=== PATIENT | female | born 1955 | race Caucasian/White ===

== ENCOUNTER 2016-11-15 18:29 | Inpatient (IN) | payer OTHER ==
[2016-11-15] MEDS ORDERED: ONDANSETRON 4 MG/2 ML VIAL ONE (18:47)
[2016-11-15] MEDS ORDERED: PANTOPRAZOLE SODIUM 40 MG in SODIUM CHLORIDE 100 ML IVPB ONE (19:11)
[2016-11-15] MEDS ORDERED: SODIUM CHLORIDE 1,000 ML IV STA (19:11)
--- NOTE | 2016-11-15 19:11 | PDOC ---
History of Present Illness - History of Present Illness Initial Comments: 11/15/16 19:33 The patient is a 61 year old female, with no significant past medical history, who presents to the emergency department via ems for [place] covered in brown and red coffee ground-like emesis. The patient does not recall falling to the floor, however, she does recall feeling dizzy upon leaving the train. The patient can not recall the events following feeling dizzy. The patient admits to diffuse abdominal pain. As per ems, a bystander saw the patient and called ems. The patient was hypotensive (70 /30) in the field. She denies chest pain, shortness of breath, headache and dizziness. She denies fever, chills, nausea, vomit, diarrhea and constipation. She denies dysuria, frequency, urgency and hematuria. Allergies: NKDA Past surgical history: Social history: a pack tobacco daily (40 years), admits to frequent alcohol consumption <Tosin Taylor - Last Filed: 11/15/16 19:33> <Layla Nicole - Last Filed: 11/15/16 21:10> - General Chief Complaint: Vomiting Blood Stated Complaint: VOMITTING BLOOD Past History <Tosin Taylor - Last Filed: 11/15/16 19:33> - Past Medical History Other medical history: PT DENIES MEDICAL HX - Psycho/Social/Smoking Cessation Hx Suicidal Ideation: No Smoking History: Never smoked Hx Alcohol Use: Yes (OCCASIONALLY) Drug/Substance Use Hx: No Substance Use Type: Alcohol <Layla Nicole - Last Filed: 11/15/16 21:10> - Past Medical History Allergies/Adverse Reactions: Allergies Allergy/AdvReac Type Severity Reaction Status Date / Time No Known Allergies Allergy Verified 11/15/16 18:44 Home Medications: Ambulatory Orders NK [No Known Home Medication] 11/15/16 Review of Systems - Review of Systems Able to Perform ROS?: Yes Comments:: 11/15/16 19:33 CONSTITUTIONAL: Absent: fever, chills, diaphoresis, generalized weakness, malaise, loss of appetite HEENT: Absent: rhinorrhea, nasal congestion, throat pain, throat swelling, difficulty swallowing, mouth swelling, ear pain, eye pain, visual Changes CARDIOVASCULAR: Absent: chest pain, syncope, palpitations, irregular heart rate, lightheadedness , peripheral edema RESPIRATORY: Absent: cough, shortness of breath, dyspnea with exertion, orthopnea, wheezing, stridor, hemoptysis GASTROINTESTINAL: (+) abdominal pain, nausea, vomiting, Absent: abdominal distension, diarrhea, constipation, melena, hematochezia GENITOURINARY: Absent: dysuria, frequency, urgency, hesitancy, hematuria, flank pain, genital pain MUSCULOSKELETAL: Absent: myalgia, arthralgia, joint swelling SKIN: Absent: rash, itching, pallor HEMATOLOGIC/IMMUNOLOGIC: Absent: easy bleeding, easy bruising, lymphadenopathy, frequent infections ENDOCRINE: Absent: unexplained weight gain, unexplained weight loss, heat intolerance, cold intolerance NEUROLOGIC: Absent: headache, focal weakness or paresthesias, dizziness, unsteady gait, seizure, mental status changes, bladder or bowel incontinence PSYCHIATRIC: Absent: anxiety, depression, suicidal or homicidal ideation, hallucinations. <Tosin Taylor - Last Filed: 11/15/16 19:33> *Physical Exam - Vital Signs Last Vital Signs Temp Pulse Resp BP Pulse Ox 97.6 F 84 18 134/64 94 L 11/15/16 18:35 11/15/16 18:35 11/15/16 18:35 11/15/16 18:35 11/15/16 18:35 - Physical Exam Comments: 11/15/16 19:34 GENERAL: Well developed, well nourished. Awake and alert. No acute distress. HEENT: Normocephalic, atraumatic. PERRLA, EOMI. No conjunctival pallor. Sclera are non- icteric. Moist mucous membranes. Oropharynx is clear. NECK: Supple. Full ROM. No JVD. Carotid pulses 2+ and symmetric, without bruits. No thyromegaly. No lymphadenopathy. CARDIOVASCULAR: Regular rate and rhythm. No murmurs, rubs, or gallops. Distal pulses are 2+ and symmetric. PULMONARY: No evidence of respiratory distress. Lungs clear to auscultation bilaterally. No wheezing, rales or rhonchi. ABDOMINAL: Soft. Non-tender. Non-distended. No rebound or guarding. No organomegaly. Normoactive bowel sounds. MUSCULOSKELETAL Normal range of motion at all joints. No bony deformities or tenderness. No CVA tenderness. EXTREMITIES: No cyanosis. No clubbing. No edema. No calf tenderness. SKIN: Warm and dry. Normal capillary refill. No rashes. No jaundice. NEUROLOGICAL: Alert, awake, appropriate. Cranial nerves 2-12 intact. Normoreflexic in the upper and lower extremities. Normal speech. Toes are down-going bilaterally. Gait is normal without ataxia. PSYCHIATRIC: Cooperative. Good eye contact. Appropriate mood and affect. <Tosin Taylor - Last Filed: 11/15/16 19:33> - Vital Signs Last Vital Signs Temp Pulse Resp BP Pulse Ox 97.6 F 84 18 134/64 94 L 11/15/16 18:35 11/15/16 18:35 11/15/16 18:35 11/15/16 18:35 11/15/16 18:35 <Layla Nicole - Last Filed: 11/15/16 21:10> ED Treatment Course - LABORATORY CBC & Chemistry Diagram: 11/15/16 19:20 11/15/16 19:20 <Layla Nicole - Last Filed: 11/15/16 21:10> Medical Decision Making - Medical Decision Making 11/15/16 20:59 -61 yo female [place] station w bloody vomit on her head ,hands and shirt PMH: denies PSH c section social history: tobacco -has been smoking 1/2 pack of tobacco x 40 years , drinks alcohol -pt states she does drink daily -bloody vomit washed off patient,she vomited coffee ground emesis -first hbg =10, no transfusion at this time hemoccult from rectal negative <Layla Nicole - Last Filed: 11/15/16 21:10> *DC/Admit/Observation/Transfer - Attestations Scribe Attestion: 11/15/16 19:34 Documentation prepared by Tosin Taylor, acting as medical records tech for Layla Nicole MD <Tosin Taylor - Last Filed: 11/15/16 19:33> - Discharge Dispostion Admit: Yes <Layla Nicole - Last Filed: 11/15/16 21:10> Diagnosis at time of Disposition: Gastrointestinal hemorrhage Qualifiers: GI bleed type/associated pathology: gastritis Gastritis type: alcoholic Qualified Code(s): K29.21 - Alcoholic gastritis with bleeding
[2016-11-15 19:40] LABS: BASOPHIL 0.6 % (0-2.0); EOSINOPHIL 0.6 % (0-4.5); MCH 28.7 pg (25.7-33.7); MCHC 32.2 g/dl (32.0-36.0); MEAN CELL VOLUME 89.1 fl (80-96); MEAN PLT VOLUME 9.4 fl (7.5-11.1); NEUTROPHILS 78.6 % (42.8-82.8); PLATELET COUNT 273 K/MM3 (134-434); RDW 16.1 % (11.6-15.6); WHITE BLOOD COUNT 12.6 K/mm3 (4.0-10.0)
[2016-11-15] MEDS ORDERED: PANTOPRAZOLE SODIUM 100 ML IVPB ONE (19:45)
[2016-11-15 19:55] LABS: INR 1.15 (0.82-1.09); PROTHROMBIN TIME (PATIENT) 12.7 SEC (9.98-11.88)
[2016-11-15 20:08] LABS: ALBUMIN 3.5 g/dl (3.4-5.0); BILIRUBIN,TOTAL 0.3 mg/dL (0.2-1.0); CALCIUM 8.1 mg/dL (8.5-10.1); TOT PROT 6.3 g/dl (6.4-8.2)
[2016-11-15 20:10] LABS: TROPONIN I 0.02 ng/ml (0.00-0.05)
[2016-11-15 20:46] LABS: STOOL FOR OCCULT BLOOD NEGATIVE (NEGATIVE)
[2016-11-15 20:48] LABS: HIV 1 & 2 AB NEGATIVE; HIV 1 AGp24 NEGATIVE
--- NOTE | 2016-11-16 00:25 | HP ---
Admitting History and Physical - Primary Care Physician PCP: Rosio Toribio - Admission History of Present Illness: 61 year old female, with no significant past medical history, who presents to the emergency department via ems for being found lying on the ground [place] the train station covered in brown and red coffee ground-like emesis. The patient does not recall falling to the floor, however, she does recall feeling dizzy upon leaving the train. The patient can not recall the events following feeling dizzy. The patient admits to diffuse abdominal pain. As per ems, a bystander saw the patient and called ems. The patient was hypotensive (70/30) in the field. history taken from ER records, pt does not remember - Smoking History Smoking history: Never smoked - Alcohol/Substance Use Hx Alcohol Use: Yes (OCCASIONALLY) Home Medications - Allergies Allergies/Adverse Reactions: Allergies Allergy/AdvReac Type Severity Reaction Status Date / Time No Known Allergies Allergy Verified 11/15/16 18:44 - Home Medications Home Medications: Ambulatory Orders NK [No Known Home Medication] 11/15/16 Physical Examination Vital Signs: Vital Signs Temperature 98 F 11/15/16 23:47 Pulse Rate 100 H 11/15/16 23:47 Respiratory Rate 18 11/15/16 23:47 Blood Pressure 140/74 11/15/16 23:47 O2 Sat by Pulse Oximetry (%) 100 11/15/16 23:47 Constitutional: Yes: No Distress HENT: Yes: Atraumatic Neck: Yes: Supple Cardiovascular: Yes: Regular Rate and Rhythm Respiratory: Yes: CTA Bilaterally Gastrointestinal: Yes: Normal Bowel Sounds Extremities: Yes: WNL Neurological: Yes: Alert, Oriented Problem List - Problems (1) GI bleed Assessment/Plan: npo, ivf iv protonix, gi consult Code(s): K92.2 - GASTROINTESTINAL HEMORRHAGE, UNSPECIFIED Qualifiers: GI bleed type/associated pathology: gastritis Gastritis type: alcoholic Qualified Code(s): K29.21 - Alcoholic gastritis with bleeding (2) Syncope Assessment/Plan: will monitor heart get cardiac consult Code(s): R55 - SYNCOPE AND COLLAPSE Assessment/Plan Laboratory Tests 11/15/16 11/15/16 11/15/16 19:20 19:20 19:20 WBC 12.6 H RBC 3.61 Hgb 10.4 L Hct 32.2 L MCV 89.1 MCHC 32.2 RDW 16.1 H Plt Count 273 MPV 9.4 Neutrophils % 78.6 Lymphocytes % 15.9 Monocytes % 4.3 Eosinophils % 0.6 Basophils % 0.6 Retic Count 1.90 H INR 1.15 H Sodium Potassium Chloride Carbon Dioxide Anion Gap BUN Creatinine Creat Clearance w eGFR Random Glucose Calcium Total Bilirubin AST ALT Alkaline Phosphatase Creatine Kinase 199 H CK-MB (CK-2) 2.528 Troponin I 0.02 Total Protein Albumin Stool Occult Blood HIV 1&2 Antibody Screen HIV P24 Antigen Blood Type Antibody Screen 11/15/16 11/15/16 11/15/16 19:20 19:20 19:48 WBC RBC Hgb Hct MCV MCHC RDW Plt Count MPV Neutrophils % Lymphocytes % Monocytes % Eosinophils % Basophils % Retic Count INR Sodium 144 Potassium 4.0 Chloride 110 H Carbon Dioxide 27 Anion Gap 7 L BUN 31 H Creatinine 1.0 Creat Clearance w eGFR 56.18 Random Glucose 146 H Calcium 8.1 L Total Bilirubin 0.3 AST 17 ALT 22 Alkaline Phosphatase 64 Creatine Kinase CK-MB (CK-2) Troponin I Total Protein 6.3 L Albumin 3.5 Stool Occult Blood Negative HIV 1&2 Antibody Screen HIV P24 Antigen Blood Type O POSITIVE Antibody Screen Negative 11/15/16 19:48 WBC RBC Hgb Hct MCV MCHC RDW Plt Count MPV Neutrophils % Lymphocytes % Monocytes % Eosinophils % Basophils % Retic Count INR Sodium Potassium Chloride Carbon Dioxide Anion Gap BUN Creatinine Creat Clearance w eGFR Random Glucose Calcium Total Bilirubin AST ALT Alkaline Phosphatase Creatine Kinase CK-MB (CK-2) Troponin I Total Protein Albumin Stool Occult Blood HIV 1&2 Antibody Screen Negative HIV P24 Antigen Negative Blood Type Antibody Screen 1.SYNCOPE WILL FU CARDIAC ENZYME CARDIAC CONSULT ECHO IN AM TELE MONITORING 2.UGI BLEED FU CBC POSSIBLE EGD TOMORROW GI CONSULT
[2016-11-16] MEDS ORDERED: HYDROmorphone HCL CARPU-JECT 1 MG/1 ML DISP.SYRIN IVPB PRN (00:29)
[2016-11-16 02:09] VITALS: BMI 39.9
[2016-11-16 08:39] LABS: BASOPHIL 0.4 % (0-2.0); EOSINOPHIL 0.5 % (0-4.5); MCH 28.6 pg (25.7-33.7); MCHC 32.4 g/dl (32.0-36.0); MEAN CELL VOLUME 88.3 fl (80-96); MEAN PLT VOLUME 8.9 fl (7.5-11.1); NEUTROPHILS 73.4 % (42.8-82.8); PLATELET COUNT 246 K/MM3 (134-434); RDW 15.7 % (11.6-15.6)
--- NOTE | 2016-11-16 08:53 | CON.GI ---
Consult Consult Specialty:: GASTROENTEROLOGY Reason for Consultation:: "COFFEE GROUND EMESIS" - History of Present Illness Chief Complaint: syncope/coffee ground emesis History of Present Illness: 61 year old female with history of GERD and recent increase in symptoms and increase in some upper esophageal dysphagia. She was feeling nauseated yesterday and had a witness syncopal episode and coffee ground emesis. She does not remember he syncope ofr vomiting but stated to me that she was having reflux, nausea, mild regurgitation all morning. She smokes about a pack or a pack and a half of cigarettes aday. She was on a PPi in the past but not now, Has never had a colonoscopy. Has had some constipation recently. Her admission albs show an anemia and a mild drop in the Hgb since admission. Her stools are OB negative. 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, CVA, Dementia, Migraine, Multiple Sclerosis, Peripheral Neuropathy, Parkinson's, Seizure, Syncope, TIA, Vertigo, Other Cardio/Vascular: No: AFIB, Aneurysm, Aortic Insufficiency, Aortic Stenosis, CAD , CHF, Deep Vein Thrombosis, HTN, Hyperlipdemia, [place], Mitral Insufficiency, Mitral Stenosis, Murmur, Pulmonary Hypertension, Other Pulmonary: No: Asthma, Bronchitis, Cancer, COPD, O2 Dependent, Pneumonia, Previously Intubated, Pulmonary Embolus, Pulmonary Fibrosis, Sleep Apnea, Other Gastrointestinal: Yes: GERD, Other (dysphagia,coffee ground emesis/nausea) Hepatobiliary: No: Cirrhosis, Cholelithiasis, Cholecystitis, Choledocholithiasis , Hepatitis A, Hepatitis B, Hepatitis C, Other Renal/: No: Renal Failure, Renal Inusuff, BPH, Cancer, Hematuria, Hemodialysis , Neurogenic Bladder, Renal Calculi, UTI, Other Reproductive: No: Ectopic , Endometriosis, Fibroids, PID, Polycystic Ovary Syndrome, Postmenopausal, Other ...: No Musculoskeletal: No: Bursitis, Chronic low back pain, Hemiparesis, Hemiplegia, Osteoarthritis, Paraplegia, Other Rheumatology: No: Fibromyalgia, Gout, Lupus, Rheumatoid Arthritis, Sarcoidosis, Vasculitis, Other ENT: No: Allergic Rhinitis, Sinusitis, Other Endocrine: No: Azar's Disease, Zain's Disease, Diabetes Insipidus, Diabetes Mellitus, Hyperparathyroidism, Hyperthyroidism, Hypothyroidism, Osteopenia, SIADH, Other Dermatology: No: Basal Cell, Cellulitis, Eczema, Melanoma, Psoriasis, Squamous Cell, Other - Past Surgical History Past Surgical History: Yes: - Alcohol/Substance Use Hx Alcohol Use: Yes (OCCASIONALLY) - Smoking History Smoking history: Current every day smoker Have you smoked in the past 12 months: Yes Aproximately how many cigarettes per day: 20 Home Medications - Allergies Allergies/Adverse Reactions: Allergies Allergy/AdvReac Type Severity Reaction Status Date / Time No Known Allergies Allergy Verified 11/15/16 18:44 - Home Medications Home Medications: Ambulatory Orders NK [No Known Home Medication] 11/15/16 Review of Systems - Review of Systems Constitutional: reports: Malaise, Other (nausea) Eyes: reports: No Symptoms HENT: reports: No Symptoms Neck: reports: No Symptoms Cardiovascular: reports: No Symptoms Respiratory: reports: No Symptoms Gastrointestinal: reports: Constipation, Dysphagia, Nausea, Vomiting Blood, Other (coffee ground emesis) Musculoskeletal: reports: No Symptoms Integumentary: reports: No Symptoms Neurological: reports: Change in LOC, Syncope Hematology/Lymphatic: reports: No Symptoms Psychiatric: reports: No Symptoms Physical Exam-GI Vital Signs: Vital Signs Temperature 99.3 F 11/16/16 06:00 Pulse Rate 87 11/16/16 06:00 Respiratory Rate 20 11/16/16 06:00 Blood Pressure 119/68 11/16/16 06:00 O2 Sat by Pulse Oximetry (%) 96 11/16/16 02:00 Constitutional: Yes: No Distress, Calm Eyes: Yes: Conjunctiva Clear HENT: Yes: Normocephalic Neck: Yes: Supple Cardiovascular: Yes: Regular Rate and Rhythm Respiratory: Yes: Regular Gastrointestinal Inspection: Yes: WNL ...Auscultate: Yes: Normoactive Bowel Sounds ...Palpate: Yes: Soft Extremities: Yes: WNL Neurological: Yes: WNL Psychiatric: Yes: WNL Labs: CBC, BMP 11/16/16 06:50 INR, PTT INR 1.15 (0.82-1.09) H 11/15/16 19:20 Laboratory Tests 11/15/16 11/15/16 11/15/16 19:20 19:20 19:20 WBC 12.6 H RBC 3.61 Hgb 10.4 L Hct 32.2 L MCV 89.1 MCHC 32.2 RDW 16.1 H Plt Count 273 MPV 9.4 Neutrophils % 78.6 Lymphocytes % 15.9 Monocytes % 4.3 Eosinophils % 0.6 Basophils % 0.6 Retic Count 1.90 H Sodium 144 Potassium 4.0 Chloride 110 H Carbon Dioxide 27 Anion Gap 7 L BUN 31 H Creatinine 1.0 Random Glucose 146 H Total Bilirubin AST ALT Alkaline Phosphatase Creatine Kinase 199 H Total Protein 6.3 L Stool Occult Blood HIV 1&2 Antibody Screen HIV P24 Antigen 11/15/16 11/15/16 11/16/16 19:48 19:48 06:50 WBC 13.0 H RBC 3.31 L Hgb 9.4 L Hct 29.2 L MCV 88.3 MCHC 32.4 RDW 15.7 H Plt Count 246 MPV 8.9 Neutrophils % 73.4 Lymphocytes % 19.7 D Monocytes % 6.0 Eosinophils % 0.5 Basophils % 0.4 Retic Count Sodium Potassium Chloride Carbon Dioxide Anion Gap BUN Creatinine Random Glucose Total Bilirubin AST ALT Alkaline Phosphatase Creatine Kinase Total Protein Stool Occult Blood Negative HIV 1&2 Antibody Screen Negative HIV P24 Antigen Negative 11/16/16 06:50 WBC RBC Hgb Hct MCV MCHC RDW Plt Count MPV Neutrophils % Lymphocytes % Monocytes % Eosinophils % Basophils % Retic Count Sodium 145 Potassium 3.9 Chloride 113 H Carbon Dioxide 23 Anion Gap 9 BUN 24 H D Creatinine 0.8 Random Glucose 88 D Total Bilirubin 0.5 D AST 17 ALT 18 Alkaline Phosphatase 62 Creatine Kinase Total Protein Stool Occult Blood HIV 1&2 Antibody Screen HIV P24 Antigen Problem List - Problems (1) GI bleed Assessment/Plan: medical clearance, iv protonix, clear liquids for now, repeat stool ob, for egd late tomorrow risks and benefits explained to the patient and she agrees smoking cessation colonoscopy as outpatient Code(s): K92.2 - GASTROINTESTINAL HEMORRHAGE, UNSPECIFIED Qualifiers: GI bleed type/associated pathology: gastritis Gastritis type: alcoholic Qualified Code(s): K29.21 - Alcoholic gastritis with bleeding (2) GERD (gastroesophageal reflux disease) Code(s): K21.9 - GASTRO-ESOPHAGEAL REFLUX DISEASE WITHOUT ESOPHAGITIS (3) Syncope Code(s): R55 - SYNCOPE AND COLLAPSE
[2016-11-16] MEDS ORDERED: PANTOPRAZOLE SODIUM 40 MG in SODIUM CHLORIDE 100 ML IVPB SCH (10:00)
--- NOTE | 2016-11-16 12:04 | EKG ---
Test Reason : Blood Pressure : / mmHG Vent. Rate : 087 BPM Atrial Rate : 087 BPM P-R Int : 180 ms QRS Dur : 074 ms QT Int : 420 ms P-R-T Axes : 073 051 031 degrees QTc Int : 505 ms NORMAL SINUS RHYTHM PROLONGED QT ABNORMAL ECG NO PREVIOUS ECGS AVAILABLE Confirmed by LILLIAN BUSH MD ([id number]) on 11/16/2016 12:03:49 PM Referred By: Confirmed By:LILLIAN BUSH MD
[2016-11-16] MEDS: PANTOPRAZOLE SODIUM 40 MG/100 ML PRE-DOCKED IVPB SCH (12:13)
[2016-11-16 13:04] LABS: ALBUMIN 3.6 g/dl (3.4-5.0); ALK PHOS 62 U/L (45-117); ANION GAP 9 (8-16); BILIRUBIN,TOTAL 0.5 mg/dL (0.2-1.0); CALCIUM 8.4 mg/dL (8.5-10.1); CO2 23 mmol/L (21-32); CREATININE 0.8 mg/dL (0.55-1.02); GLUCOSE,RANDOM 88 mg/dL (74-106); SGOT/AST 17 U/L (15-37); SGPT/ALT 18 U/L (12-78); TOT PROT 6.5 g/dl (6.4-8.2)
[2016-11-16 21:58] LABS: TROPONIN I < 0.02 ng/ml (0.00-0.05)
[2016-11-17] MEDS: PANTOPRAZOLE SODIUM 40 MG/100 ML PRE-DOCKED IVPB SCH (09:35)
--- NOTE | 2016-11-17 09:41 | CON.CARD ---
Consult Consult Specialty:: Cardiology - History of Present Illness History of Present Illness: The patient is a 61 year old female, with no significant past medical history, who presents to the emergency department via ems for [place] covered in brown and red coffee ground-like emesis. The patient does not recall falling to the floor, however, she does recall feeling dizzy upon leaving the train. The patient can not recall the events following feeling dizzy. The patient admits to diffuse abdominal pain. As per ems, a bystander saw the patient and called ems. The patient was hypotensive (70 /30) in the field. She denies chest pain, shortness of breath, headache and dizziness. She denies fever, chills, nausea, vomit, diarrhea and constipation. She denies dysuria, frequency, urgency and hematuria. 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, CVA, Dementia, Migraine, Multiple Sclerosis, Peripheral Neuropathy, Parkinson's, Seizure, Syncope, TIA, Vertigo, Other Cardio/Vascular: No: AFIB, Aneurysm, Aortic Insufficiency, Aortic Stenosis, CAD , CHF, Deep Vein Thrombosis, HTN, Hyperlipdemia, [place], Mitral Insufficiency, Mitral Stenosis, Murmur, Pulmonary Hypertension, Other Pulmonary: No: Asthma, Bronchitis, Cancer, COPD, O2 Dependent, Pneumonia, Previously Intubated, Pulmonary Embolus, Pulmonary Fibrosis, Sleep Apnea, Other Gastrointestinal: Yes: GERD, Other (dysphagia,coffee ground emesis/nausea) Hepatobiliary: No: Cirrhosis, Cholelithiasis, Cholecystitis, Choledocholithiasis , Hepatitis A, Hepatitis B, Hepatitis C, Other Renal/: No: Renal Failure, Renal Inusuff, BPH, Cancer, Hematuria, Hemodialysis , Neurogenic Bladder, Renal Calculi, UTI, Other ...: No Musculoskeletal: No: Bursitis, Chronic low back pain, Hemiparesis, Hemiplegia, Osteoarthritis, Paraplegia, Other Rheumatology: No: Fibromyalgia, Gout, Lupus, Rheumatoid Arthritis, Sarcoidosis, Vasculitis, Other ENT: No: Allergic Rhinitis, Sinusitis, Other Endocrine: No: Ward's Disease, Zain's Disease, Diabetes Insipidus, Diabetes Mellitus, Hyperparathyroidism, Hyperthyroidism, Hypothyroidism, Osteopenia, SIADH, Other Dermatology: No: Basal Cell, Cellulitis, Eczema, Melanoma, Psoriasis, Squamous Cell, Other - Past Surgical History Past Surgical History: Yes: - Alcohol/Substance Use Hx Alcohol Use: Yes (OCCASIONALLY) - Smoking History Smoking history: Current every day smoker Have you smoked in the past 12 months: Yes Aproximately how many cigarettes per day: 20 Home Medications - Allergies Allergies/Adverse Reactions: Allergies Allergy/AdvReac Type Severity Reaction Status Date / Time No Known Allergies Allergy Verified 11/15/16 18:44 - Home Medications Home Medications: Ambulatory Orders NK [No Known Home Medication] 11/15/16 Review of Systems - Review of Systems Constitutional: reports: No Symptoms Eyes: reports: No Symptoms HENT: reports: No Symptoms Neck: reports: No Symptoms Cardiovascular: reports: No Symptoms Gastrointestinal: reports: Melena Genitourinary: reports: No Symptoms Breasts: reports: No Symptoms Reported Musculoskeletal: reports: No Symptoms Integumentary: reports: No Symptoms Neurological: reports: No Symptoms Endocrine: reports: No Symptoms Hematology/Lymphatic: reports: No Symptoms Psychiatric: reports: No Symptoms Vital Signs: Vital Signs Temperature 98.9 F 11/17/16 06:00 Pulse Rate 84 11/17/16 06:00 Respiratory Rate 18 11/17/16 06:00 Blood Pressure 120/74 11/17/16 06:00 O2 Sat by Pulse Oximetry (%) 96 11/17/16 06:00 Constitutional: Yes: Well Nourished, No Distress, Calm Eyes: Yes: WNL, Conjunctiva Clear, EOM Intact HENT: Yes: WNL, Atraumatic, Normocephalic Neck: Yes: WNL, Supple, Trachea Midline Respiratory: Yes: WNL, Regular, CTA Bilaterally Gastrointestinal: Yes: WNL, Normal Bowel Sounds Renal/: Yes: WNL Cardiovascular: Yes: WNL, Regular Rate and Rhythm Musculoskeletal: Yes: WNL Extremities: Yes: WNL Integumentary: Yes: WNL Neurological: Yes: WNL, Alert, Oriented ...Motor Strength: WNL Psychiatric: Yes: WNL, Alert, Oriented - Other Data Labs, Other Data: CBC, BMP 11/16/16 06:50 11/16/16 06:50 INR, PTT INR 1.15 (0.82-1.09) H 11/15/16 19:20 Troponin, BNP 11/16/16 20:40 Troponin I < 0.02 Troponin, BNP 11/16/16 20:40 Troponin I < 0.02 Imaging - Results Chest X-ray: Image Reviewed (no i/e) EKG: Image Reviewed (sr proolonged qt) Problem List - Problems (1) GERD (gastroesophageal reflux disease) Code(s): K21.9 - GASTRO-ESOPHAGEAL REFLUX DISEASE WITHOUT ESOPHAGITIS (2) GI bleed Code(s): K92.2 - GASTROINTESTINAL HEMORRHAGE, UNSPECIFIED Qualifiers: GI bleed type/associated pathology: gastritis Gastritis type: alcoholic Qualified Code(s): K29.21 - Alcoholic gastritis with bleeding (3) Syncope Code(s): R55 - SYNCOPE AND COLLAPSE Assessment/Plan gi bleed syncope - most likely to GI bleed plan telemetry echo GI eval
[2016-11-17] MEDS ORDERED: PROPOFOL 60 ML ONE (13:39)
[2016-11-17] MEDS ORDERED: PROPOFOL 20 ML ONE (14:12)
[2016-11-17] MEDS ORDERED: PROPOFOL 40 ML ONE (14:12)
--- NOTE | 2016-11-17 14:35 | PN ---
Progress Note (short form) - Note Progress Note: GASTROENTEROLOGY SEE ENDO NOTE; PARTIAL GASTRIC OUTLET OBSTRUCTION SECONDAY TO PYLORIC CHANNEL INFLAMMATION AND PREPYLORIC ULCERATION. COULD NOT PASS A PEDIATRIC OR ADULT ENDOSCOPE. WILL TRY TO REDUCE INFLAMMATION AND START HELAING ULCER WITH PROTONIX DRIP, FULL LIQUID DIET AND BRING PATIENT BACK NEXT WEEK FOR REEVALUATION AND POSSIBLE DILATATION. WOULD TRY TO AVOID SURGERY IF POSSIBLE. START PROTONOIX DRIP, FULL LIQUID DIET AND REGLAN FOLLOW UP HPYORI BIOPSIES. TOBY MISHRA MD Problem List - Problems (1) GI bleed Code(s): K92.2 - GASTROINTESTINAL HEMORRHAGE, UNSPECIFIED Qualifiers: GI bleed type/associated pathology: gastritis Gastritis type: alcoholic Qualified Code(s): K29.21 - Alcoholic gastritis with bleeding (2) GERD (gastroesophageal reflux disease) Code(s): K21.9 - GASTRO-ESOPHAGEAL REFLUX DISEASE WITHOUT ESOPHAGITIS (3) Syncope Code(s): R55 - SYNCOPE AND COLLAPSE
[2016-11-17] MEDS ORDERED: METOCLOPRAMIDE HCL INJECTION 10 MG/2 ML VIAL IVPB PRN (14:37)
[2016-11-17] MEDS ORDERED: DEXTROSE 5%-NORMAL SALINE 1,000 ML IV SCH (14:45)
[2016-11-17] MEDS ORDERED: PANTOPRAZOLE SODIUM 80 MG in SODIUM CHLORIDE 100 ML IVPB SCH (15:45)
--- NOTE | 2016-11-17 18:17 | PN ---
Progress Note, Physician History of Present Illness: STABLE - Current Medication List Current Medications: Active Medications Hydromorphone HCl (Dilaudid Injection -) 1 mg IVPB Q3H PRN PRN Reason: PAIN Dextrose/Sodium Chloride (D5-Ns -) 1,000 mls @ 100 mls/hr IV ASDIR [facility] Last Admin: 11/17/16 16:33 Dose: 100 mls/hr Pantoprazole Sodium 80 mg/ (Sodium Chloride) 100 mls @ 10 mls/hr IVPB Q10H [facility] PRN Reason: 8 MG/HR Last Admin: 11/17/16 16:40 Dose: 10 mls/hr Metoclopramide HCl (Reglan Injection -) 10 mg IVPB Q12H PRN PRN Reason: NAUSEA AND/OR VOMITING - Objective Vital Signs: Vital Signs Temperature 97.7 F 11/17/16 14:58 Pulse Rate 64 11/17/16 14:58 Respiratory Rate 18 11/17/16 14:58 Blood Pressure 155/71 11/17/16 14:58 O2 Sat by Pulse Oximetry (%) 99 11/17/16 14:58 Constitutional: Yes: No Distress HENT: Yes: Atraumatic Neck: Yes: Supple Cardiovascular: Yes: Regular Rate and Rhythm Respiratory: Yes: CTA Bilaterally Gastrointestinal: Yes: Normal Bowel Sounds Extremities: Yes: WNL Neurological: Yes: Alert, Oriented Labs: CBC, BMP 11/16/16 06:50 11/16/16 06:50 INR, PTT INR 1.15 (0.82-1.09) H 11/15/16 19:20 Problem List - Problems (1) GI bleed Code(s): K92.2 - GASTROINTESTINAL HEMORRHAGE, UNSPECIFIED Qualifiers: Qualified Code(s): K29.21 - Alcoholic gastritis with bleeding (2) Syncope Code(s): R55 - SYNCOPE AND COLLAPSE Assessment/Plan 1.SYNCOPE CARDIAC ENZYME...NEGATIVE ECHO DONE AND REVIEWED TELE MONITORING 2.UGI BLEED FU CBC EGD DONE REPORT REVIEWED PARTIAL GASTRIC OUTLET OBSTRUCTION SECONDAY TO PYLORIC CHANNEL INFLAMMATION AND PREPYLORIC ULCERATION. ON IV PROTONIX UNTIL TUESDAY
[2016-11-17] MEDS ORDERED: HYDROmorphone HCL CARPU-JECT 1 MG/1 ML DISP.SYRIN IVPB PRN (21:55)
--- NOTE | 2016-11-18 09:11 | PN ---
Progress Note, Physician Chief Complaint: Pt sitting up at bedside; felt dizzy after eating solid food for the first time in days; no chest pain. History of Present Illness: The patient is a 61 year old female, with no significant past medical history, who presents to the emergency department via ems for [place] covered in brown and red coffee ground-like emesis. The patient does not recall falling to the floor, however, she does recall feeling dizzy upon leaving the train. The patient can not recall the events following feeling dizzy. The patient admits to diffuse abdominal pain. As per ems, a bystander saw the patient and called ems. The patient was hypotensive (70 /30) in the field. She denies chest pain, shortness of breath, headache and dizziness. She denies fever, chills, nausea, vomit, diarrhea and constipation. She denies dysuria, frequency, urgency and hematuria. Allergies: NKDA Past surgical history: Social history: a pack tobacco daily (40 years), admits to frequent alcohol consumption - Current Medication List Current Medications: Active Medications Hydromorphone HCl (Dilaudid Injection -) 1 mg IVPB Q3H PRN PRN Reason: PAIN - Objective Vital Signs: Vital Signs Temperature 97.9 F 11/18/16 01:00 Pulse Rate 64 11/18/16 05:00 Respiratory Rate 20 11/18/16 05:00 Blood Pressure 114/65 11/18/16 05:00 O2 Sat by Pulse Oximetry (%) 100 11/17/16 21:00 Constitutional: Yes: No Distress Eyes: Yes: WNL HENT: Yes: WNL Neck: Yes: WNL Cardiovascular: Yes: WNL Respiratory: Yes: Regular Gastrointestinal: Yes: Soft ...Rectal Exam: Yes: Deferred Genitourinary: No: Anuria Breast(s): Yes: WNL Musculoskeletal: Yes: WNL Extremities: Yes: WNL Edema: No Peripheral Pulses WNL: Yes Integumentary: Yes: WNL Neurological: Yes: Alert, Oriented Psychiatric: Yes: Alert, Oriented Labs: CBC, BMP 11/16/16 06:50 11/16/16 06:50 INR, PTT INR 1.15 (0.82-1.09) H 11/15/16 19:20 Problem List - Problems (1) GERD (gastroesophageal reflux disease) Code(s): K21.9 - GASTRO-ESOPHAGEAL REFLUX DISEASE WITHOUT ESOPHAGITIS (2) GI bleed Code(s): K92.2 - GASTROINTESTINAL HEMORRHAGE, UNSPECIFIED Qualifiers: GI bleed type/associated pathology: gastritis Gastritis type: alcoholic Qualified Code(s): K29.21 - Alcoholic gastritis with bleeding (3) Syncope Assessment/Plan: likely secondary to anemia/GI bleed. ECHO: normal LVEF. F/u orthostatic vital signs. EKG repeated today (improved QTc to 464msec). F/u TSH and lipids. Code(s): R55 - SYNCOPE AND COLLAPSE (4) Cigarette nicotine dependence Assessment/Plan: 1 ppd x years. Agrees to nicotine patch. Code(s): F17.210 - NICOTINE DEPENDENCE, CIGARETTES, UNCOMPLICATED
[2016-11-18] MEDS: NICOTINE 21 MG/24 HOURS TOPICAL PATCH TD SCH (12:01)
--- NOTE | 2016-11-18 17:04 | EKG ---
Test Reason : Blood Pressure : / mmHG Vent. Rate : 064 BPM Atrial Rate : 064 BPM P-R Int : 172 ms QRS Dur : 086 ms QT Int : 450 ms P-R-T Axes : 066 039 012 degrees QTc Int : 464 ms NORMAL SINUS RHYTHM WITH SINUS ARRHYTHMIA NORMAL ECG WHEN COMPARED WITH ECG OF 15-NOV-2016 18:51, NO SIGNIFICANT CHANGE WAS FOUND Confirmed by NIKIA ALVARADO MD ([id number]) on 11/18/2016 5:03:46 PM Referred By: ALEJANDRO BAL Confirmed By:NIKIA ALVARADO MD
--- NOTE | 2016-11-18 18:51 | PN ---
Progress Note, Physician - Current Medication List Current Medications: Active Medications Hydromorphone HCl (Dilaudid Injection -) 1 mg IVPB Q3H PRN PRN Reason: PAIN Nicotine (Nicoderm Patch -) 21 mg TD DAILY [facility] Last Admin: 11/18/16 12:01 Dose: 21 mg - Objective Vital Signs: Vital Signs Temperature 97.4 F L 11/18/16 15:17 Pulse Rate 76 11/18/16 15:17 Respiratory Rate 20 11/18/16 15:17 Blood Pressure 127/70 11/18/16 15:17 O2 Sat by Pulse Oximetry (%) 100 11/18/16 10:00 Constitutional: Yes: No Distress HENT: Yes: Atraumatic Neck: Yes: Supple Cardiovascular: Yes: Regular Rate and Rhythm Respiratory: Yes: CTA Bilaterally Gastrointestinal: Yes: Normal Bowel Sounds Extremities: Yes: WNL Labs: CBC, BMP 11/16/16 06:50 11/16/16 06:50 INR, PTT INR 1.15 (0.82-1.09) H 11/15/16 19:20 Problem List - Problems (1) GI bleed Code(s): K92.2 - GASTROINTESTINAL HEMORRHAGE, UNSPECIFIED Qualifiers: Qualified Code(s): K29.21 - Alcoholic gastritis with bleeding (2) Syncope Code(s): R55 - SYNCOPE AND COLLAPSE Assessment/Plan 1.SYNCOPE CARDIAC ENZYME...NEGATIVE ECHO DONE AND REVIEWED TELE MONITORING 2.UGI BLEED FU CBC EGD DONE REPORT REVIEWED PARTIAL GASTRIC OUTLET OBSTRUCTION SECONDAY TO PYLORIC CHANNEL INFLAMMATION AND PREPYLORIC ULCERATION. ON IV PROTONIX
[2016-11-18] MEDS ORDERED: PANTOPRAZOLE SODIUM 80 MG in SODIUM CHLORIDE 100 ML IVPB ONE (19:09)
[2016-11-18] MEDS ORDERED: ACETAMINOPHEN 650 MG/20.3 ML ORAL SOLUTION (CUPS) PO PRN (19:34)
[2016-11-18] MEDS: PANTOPRAZOLE SODIUM 80 MG in SODIUM CHLORIDE 100 ML IVPB SCH (19:40)
--- NOTE | 2016-11-18 19:58 | PN ---
GI Progress Note Subjective: GASTROENTEROLOGY PROTONIX DRIP WAS STOPPED FOR SOME UNKNOWN REASON BUT WAS REORDRED TOLERATES LIQUIDS HAD MILD NAUSEA THIS AM NO VOMITING - Objective Vital Signs: Vital Signs Temperature 98.0 F 11/18/16 17:00 Pulse Rate 81 11/18/16 17:00 Respiratory Rate 18 11/18/16 17:00 Blood Pressure 140/80 11/18/16 17:00 O2 Sat by Pulse Oximetry (%) 100 11/18/16 10:00 Constitutional: Calm Eyes: Yes: Conjunctiva Clear HENT: Yes: Atraumatic Cardiovascular: Yes: Regular Rate and Rhythm Respiratory: Yes: Regular Gastrointestinal Inspection: Yes: WNL ...Auscultate: Yes: Normoactive Bowel Sounds ...Palpate: Yes: Soft ...Percussion: Yes: Other (NO SUCUSSION SPLASH) Extremities: Yes: WNL Labs: CBC, BMP 11/16/16 06:50 11/16/16 06:50 INR, PTT INR 1.15 (0.82-1.09) H 11/15/16 19:20 Laboratory Tests 11/15/16 11/15/16 11/16/16 19:20 19:20 06:50 WBC 12.6 H 13.0 H RBC 3.61 3.31 L Hgb 10.4 L 9.4 L Hct 32.2 L 29.2 L MCV 89.1 88.3 MCHC 32.2 32.4 RDW 16.1 H 15.7 H Plt Count 273 246 BUN 31 H Creatinine 1.0 11/16/16 06:50 WBC RBC Hgb Hct MCV MCHC RDW Plt Count BUN 24 H D Creatinine 0.8 Problem List - Problems (1) Partial gastric outlet obstruction Assessment/Plan: PLAN: CONTINUE FLUIDS THROUGH WEEKEND/ CONTINUE PROTONIX DRIP TRY TO AVOID SURGERY TUESDAY RESCOPE AND POSSIBLE DILATION OF PYLORIC CHANNEL Code(s): K31.1 - ADULT HYPERTROPHIC PYLORIC STENOSIS (2) Pyloric channel ulcer Code(s): K25.9 - GASTRIC ULCER, UNSP ACUTE OR CHRONIC, W/O HEMOR OR PERF (3) GI bleed Code(s): K92.2 - GASTROINTESTINAL HEMORRHAGE, UNSPECIFIED Qualifiers: GI bleed type/associated pathology: gastritis Gastritis type: alcoholic Qualified Code(s): K29.21 - Alcoholic gastritis with bleeding (4) GERD (gastroesophageal reflux disease) Code(s): K21.9 - GASTRO-ESOPHAGEAL REFLUX DISEASE WITHOUT ESOPHAGITIS (5) Syncope Code(s): R55 - SYNCOPE AND COLLAPSE
[2016-11-19] MEDS: PANTOPRAZOLE SODIUM 80 MG in SODIUM CHLORIDE 100 ML IVPB SCH ×2 (06:01→15:47)
[2016-11-19 06:54] LABS: CHOLESTEROL 140 mg/dL (50-200)
--- NOTE | 2016-11-19 09:17 | PN ---
Progress Note, Physician Chief Complaint: Pt ambulatory; no dizziness; c/o "acidy feeling" when she drinks orange juice. History of Present Illness: The patient is a 61 year old female, with no significant past medical history, who presents to the emergency department via ems for being found [place] covered in brown and red coffee ground-like emesis. The patient does not recall falling to the floor, however, she does recall feeling dizzy upon leaving the train. The patient can not recall the events following feeling dizzy. The patient admits to diffuse abdominal pain. As per ems, a bystander saw the patient and called ems. The patient was hypotensive (70 /30) in the field. She denies chest pain, shortness of breath, headache and dizziness. She denies fever, chills, nausea, vomit, diarrhea and constipation. She denies dysuria, frequency, urgency and hematuria. Allergies: NKDA Past surgical history: Social history: a pack tobacco daily (40 years), admits to frequent alcohol consumption - Current Medication List Current Medications: Active Medications Acetaminophen (Tylenol Oral Solution -) 650 mg PO Q6H PRN PRN Reason: FEVER OR PAIN Hydromorphone HCl (Dilaudid Injection -) 1 mg IVPB Q3H PRN PRN Reason: PAIN Pantoprazole Sodium 80 mg/ (Sodium Chloride) 100 mls @ 10 mls/hr IVPB Q10H [facility] PRN Reason: 8 MG/HR Last Admin: 11/19/16 06:01 Dose: 10 mls/hr Nicotine (Nicoderm Patch -) 21 mg TD DAILY [facility] Last Admin: 11/18/16 12:01 Dose: 21 mg - Objective Vital Signs: Vital Signs Temperature 98.7 F 11/19/16 01:48 Pulse Rate 69 11/19/16 05:00 Respiratory Rate 20 11/19/16 05:00 Blood Pressure 142/68 11/19/16 05:00 O2 Sat by Pulse Oximetry (%) 99 11/18/16 20:42 Constitutional: Yes: Calm Eyes: Yes: WNL HENT: Yes: WNL Neck: Yes: WNL Cardiovascular: Yes: Regular Rate and Rhythm Respiratory: Yes: Regular Gastrointestinal: Yes: Soft ...Rectal Exam: Yes: Deferred Genitourinary: Yes: Anuria Breast(s): Yes: WNL Musculoskeletal: Yes: WNL Extremities: Yes: WNL Edema: No Peripheral Pulses WNL: Yes Integumentary: Yes: WNL Psychiatric: Yes: WNL Labs: CBC, BMP 11/16/16 06:50 11/16/16 06:50 INR, PTT INR 1.15 (0.82-1.09) H 11/15/16 19:20 Abnormal Lab Results 11/19/16 05:35 HDL Cholesterol 27 L Problem List - Problems (1) GERD (gastroesophageal reflux disease) Assessment/Plan: gastric outlet obstruction; f/u with GI. Code(s): K21.9 - GASTRO-ESOPHAGEAL REFLUX DISEASE WITHOUT ESOPHAGITIS (2) GI bleed Code(s): K92.2 - GASTROINTESTINAL HEMORRHAGE, UNSPECIFIED Qualifiers: Qualified Code(s): K29.21 - Alcoholic gastritis with bleeding (3) Syncope Assessment/Plan: likely secondary to anemia/GI bleed. ECHO: normal LVEF. F/u orthostatic vital signs. EKG repeated today (improved QTc to 464msec). TSH WNL LDL cholesterol 99 mg/dL. Code(s): R55 - SYNCOPE AND COLLAPSE (4) Cigarette nicotine dependence Assessment/Plan: 1 ppd x years. Agrees to nicotine patch. Code(s): F17.210 - NICOTINE DEPENDENCE, CIGARETTES, UNCOMPLICATED
[2016-11-19] MEDS: NICOTINE 21 MG/24 HOURS TOPICAL PATCH TD SCH (09:32)
--- NOTE | 2016-11-19 12:48 | PATH ---
Surgical Pathology Report Patient Name: OLE SERRA [facility]. Rec. #: [id number] /Age/Gender: 1955 (Age: 61) / F Account: [id number] Location: 4 W TELEMETRY U Taken: 11/17/2016 Received: 11/18/2016 Reported: 11/19/2016 Physicians: Garrett Lagos M.D. Specimen(s) Received A: BX PYLORIC CHANNEL (ULCER) B: BX GASTRIC MUCOSA Clinical History GI bleed Hiatal hernia, partial gastric obstruction, pyloric channel ulcer, erosive gastritis Final Diagnosis A. PYLORIC CHANNEL, ULCER, BIOPSY: GASTRIC ANTRAL MUCOSA WITH MODERATE CHRONIC GASTRITIS AND REACTIVE GASTROPATHY WITH SURFACE EROSION AND HYPERPLASTIC CHANGE. NEGATIVE FOR DYSPLASIA. IMMUNOSTAIN FOR H. PYLORI IS NEGATIVE FOR ORGANISMS. B. GASTRIC MUCOSA, BIOPSY: GASTRIC OXYNTIC MUCOSA WITH MODERATE CHRONIC GASTRITIS. IMMUNOSTAIN FOR H. PYLORI IS NEGATIVE FOR ORGANISMS. Electronically Signed Adiel Mccain M.D. Gross Description A. Received in formalin, labeled "biopsy pyloric channel" is a tompkins, irregular portion of soft tissue measuring 0.3 cm in greatest dimension. The specimen is submitted in toto in one cassette. B. Received in formalin, labeled "biopsy gastric mucosa" are 2 tompkins, irregular portions of soft tissue measuring 0.2 and 0.5 cm in greatest dimension. The specimens are submitted in toto in one cassette. 11/18/2016 saudi11/18/2016
[2016-11-19 13:16] LABS: LDL CHOLESTEROL (ONLY SJRH) 99 mg/dL (5-100)
--- NOTE | 2016-11-19 16:02 | PN ---
GI Progress Note Subjective: GI NOte ( covering for Dr Lagos) : Tolerating liquid diet. Has epigastric pain intermittently but is not severe. Denies nausea. - Objective Vital Signs: Vital Signs Temperature 98.6 F 11/19/16 09:00 Pulse Rate 72 11/19/16 09:00 Respiratory Rate 20 11/19/16 09:00 Blood Pressure 135/66 11/19/16 09:00 O2 Sat by Pulse Oximetry (%) 99 11/19/16 09:00 CBC,CMP WBC 13.0 K/mm3 (4.0-10.0) H 11/16/16 06:50 RBC 3.31 M/mm3 (3.60-5.2) L 11/16/16 06:50 Hgb 9.4 GM/dL (10.7-15.3) L 11/16/16 06:50 Hct 29.2 % (32.4-45.2) L 11/16/16 06:50 MCV 88.3 fl (80-96) 11/16/16 06:50 MCHC 32.4 g/dl (32.0-36.0) 11/16/16 06:50 RDW 15.7 % (11.6-15.6) H 11/16/16 06:50 Plt Count 246 K/MM3 (134-434) 11/16/16 06:50 MPV 8.9 fl (7.5-11.1) 11/16/16 06:50 Neutrophils % 73.4 % (42.8-82.8) 11/16/16 06:50 Lymphocytes % 19.7 % (8-40) D 11/16/16 06:50 Monocytes % 6.0 % (3.8-10.2) 11/16/16 06:50 Eosinophils % 0.5 % (0-4.5) 11/16/16 06:50 Basophils % 0.4 % (0-2.0) 11/16/16 06:50 Retic Count 1.90 % (0.5-1.5) H 11/15/16 19:20 Sodium 145 mmol/L (136-145) 11/16/16 06:50 Potassium 3.9 mmol/L (3.5-5.1) 11/16/16 06:50 Chloride 113 mmol/L (98-107) H 11/16/16 06:50 Carbon Dioxide 23 mmol/L (21-32) 11/16/16 06:50 Anion Gap 9 (8-16) 11/16/16 06:50 BUN 24 mg/dL (7-18) H D 11/16/16 06:50 Creatinine 0.8 mg/dL (0.55-1.02) 11/16/16 06:50 Creat Clearance w eGFR > 60 (>60) 11/16/16 06:50 Random Glucose 88 mg/dL (74-106) D 11/16/16 06:50 Calcium 8.4 mg/dL (8.5-10.1) L 11/16/16 06:50 Total Bilirubin 0.5 mg/dL (0.2-1.0) D 11/16/16 06:50 AST 17 U/L (15-37) 11/16/16 06:50 ALT 18 U/L (12-78) 11/16/16 06:50 Alkaline Phosphatase 62 U/L (45-117) 11/16/16 06:50 Creatine Kinase 604 IU/L (26-192) H D 11/16/16 20:40 CK-MB (CK-2) 2.885 ng/ml (0.5-3.6) 11/16/16 20:40 Troponin I < 0.02 ng/ml (0.00-0.05) 11/16/16 20:40 Total Protein 6.5 g/dl (6.4-8.2) 11/16/16 06:50 Albumin 3.6 g/dl (3.4-5.0) 11/16/16 06:50 Triglycerides 146 mg/dL (35-160) 11/19/16 05:35 Cholesterol 140 mg/dL (50-200) 11/19/16 05:35 Total LDL Cholesterol 99 mg/dL (5-100) 11/19/16 05:35 HDL Cholesterol 27 mg/dL (40-60) L 11/19/16 05:35 TSH 1.56 uIU/ml (0.358-3.74) 11/18/16 11:15 Constitutional: Calm ...Auscultate: Yes: Normoactive Bowel Sounds ...Palpate: Yes: Soft, Other (nontender) Labs: CBC, BMP 11/16/16 06:50 11/16/16 06:50 INR, PTT INR 1.15 (0.82-1.09) H 11/15/16 19:20 Assessment/Plan 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 Tolerating liquids. Dr Lagos's plan to to repeat EGD and attempt dilation of the stricture on 11/23/16. Continue Pantoprazole.
--- NOTE | 2016-11-19 20:56 | PN ---
Progress Note, Physician History of Present Illness: STABLE - Current Medication List Current Medications: Active Medications Acetaminophen (Tylenol Oral Solution -) 650 mg PO Q6H PRN PRN Reason: FEVER OR PAIN Hydromorphone HCl (Dilaudid Injection -) 1 mg IVPB Q3H PRN PRN Reason: PAIN Pantoprazole Sodium 80 mg/ (Sodium Chloride) 100 mls @ 10 mls/hr IVPB Q10H [facility] PRN Reason: 8 MG/HR Last Admin: 11/19/16 15:47 Dose: 10 mls/hr Nicotine (Nicoderm Patch -) 21 mg TD DAILY [facility] Last Admin: 11/19/16 09:32 Dose: 21 mg - Objective Vital Signs: Vital Signs Temperature 98.0 F 11/19/16 17:00 Pulse Rate 89 11/19/16 17:00 Respiratory Rate 18 11/19/16 17:00 Blood Pressure 145/86 11/19/16 17:00 O2 Sat by Pulse Oximetry (%) 99 11/19/16 09:00 Constitutional: Yes: No Distress HENT: Yes: Atraumatic Neck: Yes: Supple Cardiovascular: Yes: Regular Rate and Rhythm Respiratory: Yes: CTA Bilaterally Gastrointestinal: Yes: Normal Bowel Sounds Extremities: Yes: WNL Neurological: Yes: Alert, Oriented Labs: CBC, BMP 11/16/16 06:50 11/16/16 06:50 INR, PTT INR 1.15 (0.82-1.09) H 11/15/16 19:20 Problem List - Problems (1) GI bleed Code(s): K92.2 - GASTROINTESTINAL HEMORRHAGE, UNSPECIFIED Qualifiers: Qualified Code(s): K29.21 - Alcoholic gastritis with bleeding (2) Syncope Code(s): R55 - SYNCOPE AND COLLAPSE Assessment/Plan 1.SYNCOPE CARDIAC ENZYME...NEGATIVE ECHO DONE AND REVIEWED TELE MONITORING 2.UGI BLEED FU CBC EGD DONE REPORT REVIEWED PARTIAL GASTRIC OUTLET OBSTRUCTION SECONDAY TO PYLORIC CHANNEL INFLAMMATION AND PREPYLORIC ULCERATION. ON IV PROTONIX
[2016-11-20] MEDS: PANTOPRAZOLE SODIUM 80 MG in SODIUM CHLORIDE 100 ML IVPB SCH ×3 (01:15→23:11)
--- NOTE | 2016-11-20 09:45 | PN ---
Progress Note, Physician Chief Complaint: Pt ambulatory; no dizziness or chest pain; felt lightheaded again briefly while seated. History of Present Illness: The patient is a 61 year old female, with no significant past medical history, who presents to the emergency department via ems for [place] covered in brown and red coffee ground-like emesis. The patient does not recall falling to the floor, however, she does recall feeling dizzy upon leaving the train. The patient can not recall the events following feeling dizzy. The patient admits to diffuse abdominal pain. As per ems, a bystander saw the patient and called ems. The patient was hypotensive (70 /30) in the field. She denies chest pain, shortness of breath, headache and dizziness. She denies fever, chills, nausea, vomit, diarrhea and constipation. She denies dysuria, frequency, urgency and hematuria. Allergies: NKDA Past surgical history: Social history: a pack tobacco daily (40 years), admits to frequent alcohol consumption - Current Medication List Current Medications: Active Medications Acetaminophen (Tylenol Oral Solution -) 650 mg PO Q6H PRN PRN Reason: FEVER OR PAIN Hydromorphone HCl (Dilaudid Injection -) 1 mg IVPB Q3H PRN PRN Reason: PAIN Pantoprazole Sodium 80 mg/ (Sodium Chloride) 100 mls @ 10 mls/hr IVPB Q10H [facility] PRN Reason: 8 MG/HR Last Admin: 11/20/16 01:15 Dose: 10 mls/hr Nicotine (Nicoderm Patch -) 21 mg TD DAILY [facility] Last Admin: 11/19/16 09:32 Dose: 21 mg - Objective Vital Signs: Vital Signs Temperature 97 F L 11/20/16 06:00 Pulse Rate 89 11/20/16 06:00 Respiratory Rate 20 11/20/16 06:00 Blood Pressure 140/87 11/20/16 06:00 O2 Sat by Pulse Oximetry (%) 99 11/20/16 01:00 Constitutional: Yes: Calm Eyes: Yes: WNL HENT: Yes: WNL Neck: Yes: WNL Cardiovascular: Yes: Pulse Irregular Respiratory: Yes: Regular Gastrointestinal: Yes: Soft. No: Tenderness ...Rectal Exam: Yes: Deferred Genitourinary: No: Anuria Breast(s): Yes: WNL Musculoskeletal: Yes: WNL Extremities: Yes: WNL Edema: No Peripheral Pulses WNL: Yes Integumentary: Yes: WNL Neurological: Yes: WNL Psychiatric: Yes: WNL Labs: CBC, BMP 11/16/16 06:50 11/16/16 06:50 INR, PTT INR 1.15 (0.82-1.09) H 11/15/16 19:20 Problem List - Problems (1) GERD (gastroesophageal reflux disease) Assessment/Plan: gastric outlet obstruction. On Protonix. Planning for peptic stricture dilation. Code(s): K21.9 - GASTRO-ESOPHAGEAL REFLUX DISEASE WITHOUT ESOPHAGITIS (2) GI bleed Code(s): K92.2 - GASTROINTESTINAL HEMORRHAGE, UNSPECIFIED Qualifiers: Qualified Code(s): K29.21 - Alcoholic gastritis with bleeding (3) Syncope Assessment/Plan: likely secondary to anemia/GI bleed. ECHO: normal LVEF. F/u orthostatic vital signs. EKG repeated (improved QTc to 464msec). TSH WNL LDL cholesterol 99 mg/dL. Code(s): R55 - SYNCOPE AND COLLAPSE (4) Cigarette nicotine dependence Assessment/Plan: 1 ppd x years. Agrees to nicotine patch. Code(s): F17.210 - NICOTINE DEPENDENCE, CIGARETTES, UNCOMPLICATED
[2016-11-20] MEDS: NICOTINE 21 MG/24 HOURS TOPICAL PATCH TD SCH (10:18)
--- NOTE | 2016-11-20 11:24 | PN ---
GI Progress Note Subjective: No acute events felt lightheaded earlier this morning, now denies lightheadedness/SOB/Abdominal pain States that she has not had a bowel movement in 3 days - Objective Vital Signs: Vital Signs Temperature 98.1 F 11/20/16 10:00 Pulse Rate 112 11/20/16 10:00 Respiratory Rate 18 11/20/16 10:00 Blood Pressure 152/94 11/20/16 10:00 O2 Sat by Pulse Oximetry (%) 99 11/20/16 09:00 Constitutional: Calm Eyes: No: Sclera Icterus Cardiovascular: Yes: Regular Rate and Rhythm, Tachycardia. No: Murmur Respiratory: Yes: CTA Bilaterally Gastrointestinal Inspection: Yes: Scars (pelvic scar). 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 Tolerating liquids. Dr Lagos's plan to to repeat EGD and attempt dilation of the stricture on 11/23/16. Continue Pantoprazole. Constipation: Added MiraLAX 17g daily
[2016-11-20] MEDS: POLYETHYLENE GLYCOL 3350 119 GM BTL PO SCH (13:22)
--- NOTE | 2016-11-20 18:31 | PN ---
Progress Note, Physician History of Present Illness: STABLE - Current Medication List Current Medications: Active Medications Acetaminophen (Tylenol Oral Solution -) 650 mg PO Q6H PRN PRN Reason: FEVER OR PAIN Hydromorphone HCl (Dilaudid Injection -) 1 mg IVPB Q3H PRN PRN Reason: PAIN Pantoprazole Sodium 80 mg/ (Sodium Chloride) 100 mls @ 10 mls/hr IVPB Q10H [facility] PRN Reason: 8 MG/HR Last Admin: 11/20/16 11:15 Dose: 10 mls/hr Nicotine (Nicoderm Patch -) 21 mg TD DAILY [facility] Last Admin: 11/20/16 10:18 Dose: 21 mg Polyethylene Glycol (Miralax (For Daily Use) -) 17 gm PO DAILY [facility]PLAC[facility] BY [facility] Last Admin: 11/20/16 13:22 Dose: 17 gm - Objective Vital Signs: Vital Signs Temperature 98.8 F 11/20/16 18:00 Pulse Rate 106 H 11/20/16 18:00 Respiratory Rate 19 11/20/16 18:00 Blood Pressure 137/97 11/20/16 18:00 O2 Sat by Pulse Oximetry (%) 99 11/20/16 09:00 Constitutional: Yes: No Distress HENT: Yes: Atraumatic Neck: Yes: Supple Cardiovascular: Yes: Regular Rate and Rhythm Respiratory: Yes: CTA Bilaterally Gastrointestinal: Yes: Normal Bowel Sounds Extremities: Yes: WNL Neurological: Yes: Alert, Oriented Labs: CBC, BMP 11/16/16 06:50 11/16/16 06:50 INR, PTT INR 1.15 (0.82-1.09) H 11/15/16 19:20 Problem List - Problems (1) GI bleed Code(s): K92.2 - GASTROINTESTINAL HEMORRHAGE, UNSPECIFIED Qualifiers: Qualified Code(s): K29.21 - Alcoholic gastritis with bleeding (2) Syncope Code(s): R55 - SYNCOPE AND COLLAPSE Assessment/Plan 1.SYNCOPE CARDIAC ENZYME...NEGATIVE ECHO DONE AND REVIEWED TELE MONITORING 2.UGI BLEED FU CBC EGD DONE REPORT REVIEWED PARTIAL GASTRIC OUTLET OBSTRUCTION SECONDAY TO PYLORIC CHANNEL INFLAMMATION AND PREPYLORIC ULCERATION. ON IV PROTONIX
--- NOTE | 2016-11-21 08:07 | PN ---
Progress Note, Physician Chief Complaint: Pt tends to feel dizzy after eating breakfast, while still seated. She has been walking the hallway this morning without dizziness. History of Present Illness: The patient is a 61 year old female, with no significant past medical history, who presents to the emergency department via ems for being [place] the [place] covered in brown and red coffee ground-like emesis. The patient does not recall falling to the floor, however, she does recall feeling dizzy upon leaving the train. The patient can not recall the events following feeling dizzy. The patient admits to diffuse abdominal pain. As per ems, a bystander saw the patient and called ems. The patient was hypotensive (70 /30) in the field. She denies chest pain, shortness of breath, headache and dizziness. She denies fever, chills, nausea, vomit, diarrhea and constipation. She denies dysuria, frequency, urgency and hematuria. Allergies: NKDA Past surgical history: Social history: a pack tobacco daily (40 years), admits to frequent alcohol consumption - Current Medication List Current Medications: Active Medications Acetaminophen (Tylenol Oral Solution -) 650 mg PO Q6H PRN PRN Reason: FEVER OR PAIN Pantoprazole Sodium 80 mg/ (Sodium Chloride) 100 mls @ 10 mls/hr IVPB Q10H [facility] PRN Reason: 8 MG/HR Last Admin: 11/20/16 23:11 Dose: 10 mls/hr Nicotine (Nicoderm Patch -) 21 mg TD DAILY [facility] Last Admin: 11/20/16 10:18 Dose: 21 mg Polyethylene Glycol (Miralax (For Daily Use) -) 17 gm PO DAILY [facility] Last Admin: 11/20/16 13:22 Dose: 17 gm - Objective Vital Signs: Vital Signs Temperature 98.3 F 11/20/16 22:00 Pulse Rate 88 11/21/16 06:00 Respiratory Rate 20 11/21/16 06:00 Blood Pressure 130/83 11/21/16 06:00 O2 Sat by Pulse Oximetry (%) 97 11/20/16 21:00 Constitutional: Yes: Well Nourished, No Distress Eyes: Yes: WNL HENT: Yes: WNL Neck: Yes: WNL Cardiovascular: Yes: Regular Rate and Rhythm Respiratory: Yes: Regular Gastrointestinal: Yes: Soft Genitourinary: Yes: WNL Breast(s): Yes: WNL Extremities: Yes: WNL Edema: No Peripheral Pulses WNL: Yes Integumentary: Yes: WNL Neurological: Yes: WNL Psychiatric: Yes: WNL Labs: CBC, BMP 11/16/16 06:50 11/16/16 06:50 INR, PTT INR 1.15 (0.82-1.09) H 11/15/16 19:20 Problem List - Problems (1) GERD (gastroesophageal reflux disease) Assessment/Plan: gastric outlet obstruction; peptic stricture, pre-pyloric active ulcer. On Protonix. Planning for peptic stricture dilation. Code(s): K21.9 - GASTRO-ESOPHAGEAL REFLUX DISEASE WITHOUT ESOPHAGITIS (2) GI bleed Assessment/Plan: s/p PRBCs; f/u with GI. Code(s): K92.2 - GASTROINTESTINAL HEMORRHAGE, UNSPECIFIED Qualifiers: Qualified Code(s): K29.21 - Alcoholic gastritis with bleeding (3) Syncope Assessment/Plan: likely secondary to anemia/GI bleed. ECHO: normal LVEF. F/u orthostatic vital signs. EKG repeated (improved QTc to 464msec). TSH WNL LDL cholesterol 99 mg/dL. Code(s): R55 - SYNCOPE AND COLLAPSE (4) Cigarette nicotine dependence Assessment/Plan: 1 ppd x years. Agrees to nicotine patch. Code(s): F17.210 - NICOTINE DEPENDENCE, CIGARETTES, UNCOMPLICATED
[2016-11-21] MEDS ORDERED: PT OWN MED DRAWER 7, Y5N ONE (09:22)
[2016-11-21] MEDS: PANTOPRAZOLE SODIUM 80 MG in SODIUM CHLORIDE 100 ML IVPB SCH ×2 (09:26→18:05)
[2016-11-21] MEDS: NICOTINE 21 MG/24 HOURS TOPICAL PATCH TD SCH (09:27)
[2016-11-21] MEDS: POLYETHYLENE GLYCOL 3350 119 GM BTL PO SCH (09:29)
--- NOTE | 2016-11-21 17:22 | PN ---
Progress Note, Physician History of Present Illness: STABLE - Current Medication List Current Medications: Active Medications Acetaminophen (Tylenol Oral Solution -) 650 mg PO Q6H PRN PRN Reason: FEVER OR PAIN Pantoprazole Sodium 80 mg/ (Sodium Chloride) 100 mls @ 10 mls/hr IVPB Q10H [facility] PRN Reason: 8 MG/HR Last Admin: 11/21/16 09:26 Dose: 10 mls/hr Nicotine (Nicoderm Patch -) 21 mg TD DAILY [facility] Last Admin: 11/21/16 09:27 Dose: 21 mg Polyethylene Glycol (Miralax (For Daily Use) -) 17 gm PO DAILY [facility] Last Admin: 11/21/16 09:29 Dose: 17 gm - Objective Vital Signs: Vital Signs Temperature 97.9 F 11/21/16 14:00 Pulse Rate 95 H 11/21/16 14:00 Respiratory Rate 20 11/21/16 14:00 Blood Pressure 135/85 11/21/16 14:00 O2 Sat by Pulse Oximetry (%) 96 11/21/16 10:00 Constitutional: Yes: No Distress HENT: Yes: Atraumatic Neck: Yes: Supple Cardiovascular: Yes: Regular Rate and Rhythm Respiratory: Yes: CTA Bilaterally Gastrointestinal: Yes: Normal Bowel Sounds Extremities: Yes: WNL Neurological: Yes: Alert, Oriented Labs: CBC, BMP 11/16/16 06:50 11/16/16 06:50 INR, PTT INR 1.15 (0.82-1.09) H 11/15/16 19:20 Problem List - Problems (1) GI bleed Code(s): K92.2 - GASTROINTESTINAL HEMORRHAGE, UNSPECIFIED Qualifiers: Qualified Code(s): K29.21 - Alcoholic gastritis with bleeding (2) Syncope Code(s): R55 - SYNCOPE AND COLLAPSE Assessment/Plan 1.SYNCOPE CARDIAC ENZYME...NEGATIVE ECHO DONE AND REVIEWED TELE MONITORING 2.UGI BLEED FU CBC EGD DONE REPORT REVIEWED PARTIAL GASTRIC OUTLET OBSTRUCTION SECONDAY TO PYLORIC CHANNEL INFLAMMATION AND PREPYLORIC ULCERATION. POSSIBLE REPEAT EGD ON IV PROTONIX
[2016-11-22] MEDS: PANTOPRAZOLE SODIUM 80 MG in SODIUM CHLORIDE 100 ML IVPB SCH ×4 (03:34→22:53)
[2016-11-22] MEDS: NICOTINE 21 MG/24 HOURS TOPICAL PATCH TD SCH (09:31)
[2016-11-22] MEDS: POLYETHYLENE GLYCOL 3350 119 GM BTL PO SCH (09:31)
--- NOTE | 2016-11-22 13:26 | PN ---
Progress Note, Physician History of Present Illness: The patient is a 61 year old female, with no significant past medical history, who presents to the emergency department via ems for being found lying [place] the ground [place] the [place] station covered in brown and red coffee ground-like emesis. The patient does not recall falling to the floor, however, she does recall feeling dizzy upon leaving the train. The patient can not recall the events following feeling dizzy. The patient admits to diffuse abdominal pain. As per ems, a bystander saw the patient and called ems. The patient was hypotensive (70 /30) in the field. She denies chest pain, shortness of breath, headache and dizziness. She denies fever, chills, nausea, vomit, diarrhea and constipation. She denies dysuria, frequency, urgency and hematuria. Allergies: NKDA Past surgical history: Social history: a pack tobacco daily (40 years), admits to frequent alcohol consumption - Current Medication List Current Medications: Active Medications Acetaminophen (Tylenol Oral Solution -) 650 mg PO Q6H PRN PRN Reason: FEVER OR PAIN Pantoprazole Sodium 80 mg/ (Sodium Chloride) 100 mls @ 10 mls/hr IVPB Q10H [facility] PRN Reason: 8 MG/HR Last Admin: 11/22/16 04:40 Dose: 10 mls/hr Nicotine (Nicoderm Patch -) 21 mg TD DAILY [facility] Last Admin: 11/22/16 09:31 Dose: 21 mg Polyethylene Glycol (Miralax (For Daily Use) -) 17 gm PO DAILY [facility] Last Admin: 11/22/16 09:31 Dose: 17 gm - Objective Vital Signs: Vital Signs Temperature 97.3 F L 11/22/16 07:47 Pulse Rate 97 H 11/22/16 07:47 Respiratory Rate 18 11/22/16 07:47 Blood Pressure 146/87 11/22/16 07:47 O2 Sat by Pulse Oximetry (%) 96 11/21/16 22:00 Eyes: Yes: WNL, Conjunctiva Clear, EOM Intact HENT: Yes: WNL, Atraumatic, Normocephalic Neck: Yes: WNL, Supple, Trachea Midline Cardiovascular: Yes: WNL, Regular Rate and Rhythm Respiratory: Yes: WNL, Regular, CTA Bilaterally Gastrointestinal: Yes: WNL, Normal Bowel Sounds Genitourinary: Yes: WNL Musculoskeletal: Yes: WNL Extremities: Yes: WNL Edema: No Integumentary: Yes: WNL Neurological: Yes: WNL, Alert, Oriented ...Motor Strength: WNL Psychiatric: Yes: WNL Labs: CBC, BMP 11/16/16 06:50 11/16/16 06:50 INR, PTT INR 1.15 (0.82-1.09) H 11/15/16 19:20 Problem List - Problems (1) GERD (gastroesophageal reflux disease) Code(s): K21.9 - GASTRO-ESOPHAGEAL REFLUX DISEASE WITHOUT ESOPHAGITIS (2) GI bleed Code(s): K92.2 - GASTROINTESTINAL HEMORRHAGE, UNSPECIFIED Qualifiers: Qualified Code(s): K29.21 - Alcoholic gastritis with bleeding (3) Syncope Code(s): R55 - SYNCOPE AND COLLAPSE Assessment/Plan - Problems (1) GERD (gastroesophageal reflux disease) Assessment/Plan: gastric outlet obstruction; peptic stricture, pre-pyloric active ulcer. On Protonix. Planning for peptic stricture dilation. Code(s): K21.9 - GASTRO-ESOPHAGEAL REFLUX DISEASE WITHOUT ESOPHAGITIS (2) GI bleed Assessment/Plan: s/p PRBCs; f/u with GI. Code(s): K92.2 - GASTROINTESTINAL HEMORRHAGE, UNSPECIFIED Qualifiers: Qualified Code(s): K29.21 - Alcoholic gastritis with bleeding (3) Syncope Assessment/Plan: likely secondary to anemia/GI bleed. ECHO: normal LVEF. F/u orthostatic vital signs. EKG repeated (improved QTc to 464msec). TSH WNL LDL cholesterol 99 mg/dL. Code(s): R55 - SYNCOPE AND COLLAPSE (4) Cigarette nicotine dependence Assessment/Plan: 1 ppd x years. Agrees to nicotine patch. Code(s): F17.210 - NICOTINE DEPENDENCE, CIGARETTES, UNCOMPLICATED
[2016-11-22] MEDS ORDERED: PT OWN MED DRAWER 7, Y5N ONE ×2 (16:58→22:52)
--- NOTE | 2016-11-22 17:50 | PN ---
GI Progress Note Subjective: GASTROENTEROLGY DOING WELL WITH LIQUID DIET FOR EGD AND DILATION TOMORROW - Objective Vital Signs: Vital Signs Temperature 98.5 F 11/22/16 13:54 Pulse Rate 93 H 11/22/16 13:54 Respiratory Rate 18 11/22/16 07:47 Blood Pressure 150/80 11/22/16 13:54 O2 Sat by Pulse Oximetry (%) 97 11/22/16 14:00 Constitutional: No Distress Eyes: Yes: Conjunctiva Clear HENT: Yes: Normocephalic Cardiovascular: Yes: Regular Rate and Rhythm Respiratory: Yes: Regular Gastrointestinal Inspection: Yes: WNL ...Auscultate: Yes: Normoactive Bowel Sounds ...Palpate: Yes: Soft Extremities: Yes: WNL Labs: CBC, BMP 11/16/16 06:50 11/16/16 06:50 INR, PTT INR 1.15 (0.82-1.09) H 11/15/16 19:20 Problem List - Problems (1) Partial gastric outlet obstruction Assessment/Plan: NPO P 9 AM FOR EGD AND DILATION RISKS AND BENEFITS EXPLAINED LABS FOR AM IF DILATION OPENS THE PYLORIC CHANNEL ENOUGH CAN BE D/C ON Code(s): K31.1 - ADULT HYPERTROPHIC PYLORIC STENOSIS (2) Pyloric channel ulcer Code(s): K25.9 - GASTRIC ULCER, UNSP ACUTE OR CHRONIC, W/O HEMOR OR PERF (3) GI bleed Code(s): K92.2 - GASTROINTESTINAL HEMORRHAGE, UNSPECIFIED Qualifiers: Qualified Code(s): K29.21 - Alcoholic gastritis with bleeding (4) GERD (gastroesophageal reflux disease) Code(s): K21.9 - GASTRO-ESOPHAGEAL REFLUX DISEASE WITHOUT ESOPHAGITIS (5) Syncope Code(s): R55 - SYNCOPE AND COLLAPSE
--- NOTE | 2016-11-22 19:46 | PN ---
Progress Note, Physician History of Present Illness: STABLE - Current Medication List Current Medications: Active Medications Acetaminophen (Tylenol Oral Solution -) 650 mg PO Q6H PRN PRN Reason: FEVER OR PAIN Pantoprazole Sodium 80 mg/ (Sodium Chloride) 100 mls @ 10 mls/hr IVPB Q10H [facility] PRN Reason: 8 MG/HR Last Admin: 11/22/16 14:30 Dose: 10 mls/hr Nicotine (Nicoderm Patch -) 21 mg TD [facility]ILY [facility] Last Admin: 11/22/16 09:31 Dose: 21 mg Polyethylene Glycol (Miralax (For Daily Use) -) 17 gm PO DAILY [facility] Last Admin: 11/22/16 09:31 Dose: 17 gm - Objective Vital Signs: Vital Signs Temperature 98.5 F 11/22/16 17:00 Pulse Rate 86 11/22/16 17:00 Respiratory Rate 18 11/22/16 17:00 Blood Pressure 143/78 11/22/16 17:00 O2 Sat by Pulse Oximetry (%) 97 11/22/16 14:00 Constitutional: Yes: No Distress HENT: Yes: Atraumatic Neck: Yes: Supple Cardiovascular: Yes: Regular Rate and Rhythm Respiratory: Yes: CTA Bilaterally Gastrointestinal: Yes: Normal Bowel Sounds Extremities: Yes: WNL Neurological: Yes: Alert, Oriented Labs: CBC, BMP 11/16/16 06:50 11/16/16 06:50 INR, PTT INR 1.15 (0.82-1.09) H 11/15/16 19:20 Problem List - Problems (1) GI bleed Code(s): K92.2 - GASTROINTESTINAL HEMORRHAGE, UNSPECIFIED Qualifiers: Qualified Code(s): K29.21 - Alcoholic gastritis with bleeding (2) Syncope Code(s): R55 - SYNCOPE AND COLLAPSE Assessment/Plan 1.SYNCOPE CARDIAC ENZYME...NEGATIVE ECHO DONE AND REVIEWED TELE MONITORING 2.UGI BLEED FOR REPEAT EGD IN AM ON IV PROTONIX CONSTIPATION WILL GIVE STOOL SOFTENER
[2016-11-22] MEDS ORDERED: SENNOSIDES 8.6MG TABLET (FP) PO PRN (19:47)
[2016-11-23 07:24] LABS: BASOPHIL 0.7 % (0-2.0); EOSINOPHIL 3.7 % (0-4.5); MCH 28.6 pg (25.7-33.7); MCHC 32.5 g/dl (32.0-36.0); MEAN CELL VOLUME 88.2 fl (80-96); MEAN PLT VOLUME 8.5 fl (7.5-11.1); NEUTROPHILS 51.3 % (42.8-82.8); PLATELET COUNT 316 K/MM3 (134-434); RDW 15.4 % (11.6-15.6); WHITE BLOOD COUNT 5.3 K/mm3 (4.0-10.0)
[2016-11-23 07:25] LABS: ALBUMIN 3.5 g/dl (3.4-5.0); BILIRUBIN,TOTAL 0.4 mg/dL (0.2-1.0); CALCIUM 8.9 mg/dL (8.5-10.1)
[2016-11-23 07:26] LABS: TOT PROT 6.5 g/dl (6.4-8.2)
[2016-11-23 08:12] LABS: INR 1.14 (0.82-1.09); PROTHROMBIN TIME (PATIENT) 12.6 SEC (9.98-11.88)
[2016-11-23] MEDS: NICOTINE 21 MG/24 HOURS TOPICAL PATCH TD SCH (09:19)
[2016-11-23] MEDS: POLYETHYLENE GLYCOL 3350 119 GM BTL PO SCH (09:20)
--- NOTE | 2016-11-23 10:11 | PN ---
Progress Note, Physician Chief Complaint: Pt denies chest or abdominal pain; no dyspnea. C/o right leg change in color back of calf (noted after syncope and fall recently). History of Present Illness: The patient is a 61 year old female, with no significant past medical history, who presents to the emergency department via ems for being found [place] ground [place] covered in brown and red coffee ground-like emesis. The patient does not recall falling to the floor, however, she does recall feeling dizzy upon leaving the train. The patient can not recall the events following feeling dizzy. The patient admits to diffuse abdominal pain. As per ems, a bystander saw the patient and called ems. The patient was hypotensive (70 /30) in the field. She denies chest pain, shortness of breath, headache and dizziness. She denies fever, chills, nausea, vomit, diarrhea and constipation. She denies dysuria, frequency, urgency and hematuria. Allergies: NKDA Past surgical history: Social history: a pack tobacco daily (40 years), admits to frequent alcohol consumption - Current Medication List Current Medications: Active Medications Acetaminophen (Tylenol Oral Solution -) 650 mg PO Q6H PRN PRN Reason: FEVER OR PAIN Pantoprazole Sodium 80 mg/ (Sodium Chloride) 100 mls @ 10 mls/hr IVPB Q10H [facility] PRN Reason: 8 MG/HR Last Admin: 11/22/16 22:53 Dose: 10 mls/hr Nicotine (Nicoderm Patch -) 21 mg TD DAILY [facility] Last Admin: 11/23/16 09:19 Dose: 21 mg Polyethylene Glycol (Miralax (For Daily Use) -) 17 gm PO DAILY [facility] Last Admin: 11/23/16 09:20 Dose: 17 gm Senna (Senna -) 2 tab PO HS PRN PRN Reason: CONSTIPATION Last Admin: 11/23/16 00:55 Dose: 2 tab - Objective Vital Signs: Vital Signs Temperature 98 F 11/23/16 06:55 Pulse Rate 90 11/23/16 06:55 Respiratory Rate 18 11/23/16 06:55 Blood Pressure 126/59 11/23/16 06:55 O2 Sat by Pulse Oximetry (%) 96 11/22/16 22:00 Constitutional: Yes: Calm Eyes: Yes: WNL HENT: Yes: WNL Neck: Yes: WNL Cardiovascular: Yes: Regular Rate and Rhythm Respiratory: Yes: Regular Gastrointestinal: Yes: Soft ...Rectal Exam: Yes: Deferred Genitourinary: No: Anuria Breast(s): Yes: WNL Musculoskeletal: Yes: WNL Extremities: Yes: Other (mlld hyperpigmentation of calf: ? secondary to fall, lying on that side with pressure (no calf pain, no decreased ROM)) Edema: No Peripheral Pulses WNL: Yes Integumentary: Yes: Other (see above) Neurological: Yes: WNL Psychiatric: Yes: WNL Labs: CBC, BMP 11/23/16 05:40 11/23/16 05:40 INR, PTT INR 1.14 (0.82-1.09) 11/23/16 05:40 Abnormal Lab Results 11/23/16 05:40 RBC 3.23 L Hgb 9.2 L Hct 28.4 L Monocytes % 13.4 H D Problem List - Problems (1) GERD (gastroesophageal reflux disease) Assessment/Plan: gastric outlet obstruction; peptic stricture, pre-pyloric active ulcer. On Protonix IV. Planning for peptic stricture dilation today. Code(s): K21.9 - GASTRO-ESOPHAGEAL REFLUX DISEASE WITHOUT ESOPHAGITIS (2) GI bleed Assessment/Plan: s/p PRBCs; f/u with GI. Code(s): K92.2 - GASTROINTESTINAL HEMORRHAGE, UNSPECIFIED Qualifiers: Qualified Code(s): K29.21 - Alcoholic gastritis with bleeding (3) Syncope Assessment/Plan: likely secondary to anemia/GI bleed. ECHO: normal LVEF. F/u orthostatic vital signs. Consider carotid artery doppler. EKG repeated (improved QTc to 464msec). TSH WNL LDL cholesterol 99 mg/dL. Pt has multiple CAD risks; would do stress treadmill ECHO or MIBI ( may be done as outpatient). Code(s): R55 - SYNCOPE AND COLLAPSE (4) Cigarette nicotine dependence Assessment/Plan: 1 ppd x years. Agrees to nicotine patch. Code(s): F17.210 - NICOTINE DEPENDENCE, CIGARETTES, UNCOMPLICATED
[2016-11-23] MEDS ORDERED: PT OWN MED DRAWER 7, Y5N ONE (10:25)
[2016-11-23] MEDS: PANTOPRAZOLE SODIUM 80 MG in SODIUM CHLORIDE 100 ML IVPB SCH (10:27)
[2016-11-23] MEDS ORDERED: PROPOFOL 40 ML ONE (15:58)
--- NOTE | 2016-11-23 16:59 | PN ---
Progress Note (short form) - Note Progress Note: GASTROENTEROLOGY SEE ENDO REPORT: PREPYLORIC WHITE BASED ULCER SEEN NO BLEEDING. IT APPEARS SMALLER THAN LAST WEEK. THE STRICTURE IN THE PYLORIC CHANNEL STILL PRESENT. A PEDIATRIC SCOPE WAS NO ABLE TO PASS THROUGH THE STRICTURE. THE STRICTURE WAS DILATED FROM 8MM TO 11MM. THIS DILATED THE STRICTURE ENOUGH TO ALLOW THE PEDIATRIC SCOPE TO PASS INTO THE SECOND PORTION OF THE DUODENUM WITH EASE. PLAN: PUREED DIET CHANGE TO PO PROTONIX IF TOLERATES D/C HOME IN AM ON PROTONIX 40 MG PO BID WITH REPEAT EGD/DILATION NEXT WEEK. MY CARD GIVEN TO THE PATIENT. NO ETOH, ASA, NSAIDS, TOBACCO. TOBY MISHRA MD Problem List - Problems (1) Partial gastric outlet obstruction Code(s): K31.1 - ADULT HYPERTROPHIC PYLORIC STENOSIS (2) Pyloric channel ulcer Code(s): K25.9 - GASTRIC ULCER, UNSP ACUTE OR CHRONIC, W/O HEMOR OR PERF (3) GI bleed Code(s): K92.2 - GASTROINTESTINAL HEMORRHAGE, UNSPECIFIED Qualifiers: Qualified Code(s): K29.21 - Alcoholic gastritis with bleeding (4) GERD (gastroesophageal reflux disease) Code(s): K21.9 - GASTRO-ESOPHAGEAL REFLUX DISEASE WITHOUT ESOPHAGITIS (5) Syncope Code(s): R55 - SYNCOPE AND COLLAPSE
--- NOTE | 2016-11-23 18:35 | PN ---
Progress Note, Physician History of Present Illness: STABLE - Current Medication List Current Medications: Active Medications Acetaminophen (Tylenol Oral Solution -) 650 mg PO Q6H PRN PRN Reason: FEVER OR PAIN Nicotine (Nicoderm Patch -) 21 mg TD DAILY [facility] Last Admin: 11/23/16 09:19 Dose: 21 mg Pantoprazole Sodium (Protonix -) 40 mg PO BID [facility] Polyethylene Glycol (Miralax (For Daily Use) -) 17 gm PO DAILY [facility] Last Admin: 11/23/16 09:20 Dose: 17 gm Senna (Senna -) 2 tab PO HS PRN PRN Reason: CONSTIPATION Last Admin: 11/23/16 00:55 Dose: 2 tab - Objective Vital Signs: Vital Signs Temperature 97.8 F 11/23/16 17:14 Pulse Rate 77 11/23/16 17:15 Respiratory Rate 20 11/23/16 17:15 Blood Pressure 132/71 11/23/16 17:15 O2 Sat by Pulse Oximetry (%) 97 11/23/16 17:15 Constitutional: Yes: No Distress HENT: Yes: Atraumatic Neck: Yes: Supple Cardiovascular: Yes: Regular Rate and Rhythm Respiratory: Yes: CTA Bilaterally Gastrointestinal: Yes: Normal Bowel Sounds Extremities: Yes: WNL Neurological: Yes: Alert, Oriented Labs: CBC, BMP 11/23/16 05:40 11/23/16 05:40 INR, PTT INR 1.14 (0.82-1.09) 11/23/16 05:40 Problem List - Problems (1) GI bleed Code(s): K92.2 - GASTROINTESTINAL HEMORRHAGE, UNSPECIFIED Qualifiers: Qualified Code(s): K29.21 - Alcoholic gastritis with bleeding (2) Syncope Code(s): R55 - SYNCOPE AND COLLAPSE Assessment/Plan 1.SYNCOPE CARDIAC ENZYME...NEGATIVE ECHO DONE AND REVIEWED TELE MONITORING 2.UGI BLEED egd done gi note reviewed dc home on po protonix gi fu 1 week for repeat egd
[2016-11-23] MEDS ORDERED: PANTOPRAZOLE 40 MG TABLET (FP) PO SCH (22:00)
[2016-11-24 06:15] VITALS: TEMP 98.1
[2016-11-24 09:11] VITALS: BP 143/94; PULSE 88
--- NOTE | 2016-11-24 13:59 | DS ---
Physical Examination Vital Signs: Vital Signs Temperature 98.1 F 11/24/16 08:34 Pulse Rate 88 11/24/16 08:34 Respiratory Rate 18 11/24/16 08:34 Blood Pressure 143/94 11/24/16 08:34 O2 Sat by Pulse Oximetry (%) 97 11/24/16 08:34 Labs: CBC, BMP 11/23/16 05:40 11/23/16 05:40 Discharge Summary Reason For Visit: GASTROINTESTINAL HEMORRHAGE - Instructions Diet, Activity, Other Instructions: see dr odom 1 week Referrals: Rosio Toribio MD [Staff Physician] - Garrett Lagos MD [Staff Physician] - Disposition: HOME - Home Medications Comprehensive Discharge Medication List: Ambulatory Orders Pantoprazole Sodium [Protonix] 40 mg PO BID #60 tablet. 11/23/16 in home
--- NOTE | 2016-11-25 11:30 | PATH ---
Surgical Pathology Report Patient Name: OLE SERRA [facility]. Rec. #: [id number] /Age/Gender: 1955 (Age: 61) / F Account: [id number] Location: [address] [place] [address]/[facility] Taken: 11/23/2016 Received: 11/24/2016 Reported: 11/25/2016 Physicians: Garrett Lagos M.D. Specimen(s) Received BX ANTRAL ULCER Clinical History Pyloric stricture Antral and prepyloric ulcer, pyloric channel stricture Final Diagnosis STOMACH, ANTRAL ULCER, BIOPSY: MILD CHRONIC ACTIVE GASTRITIS WITH FOCAL REACTIVE GASTROPATHY. IMMUNOSTAIN FOR H. PYLORI IS NEGATIVE. Electronically Signed Adriano Hale M.D. Gross Description Received in formalin, labeled "biopsy antral ulcer" are 2 tompkins, irregular portions of soft tissue measuring 0.2 and 0.5 cm. in greatest dimension. The specimens are submitted in toto in one cassette. /11/24/201611/24/2016
== END 2016-11-24 09:05 | disposition home or self-care (01) | DRG 220 ==
LOC: JER 18:29 → UNDOADMIN 21:10 → JERBED 21:10 → OBSVTOIN 11-16 00:25 → INTOOBSV 11-16 00:25 → J6S 11-16 01:59 → J4W 11-16 22:01 → J6S 11-21 18:42
PROVIDERS: ADMIT Internal Medicine; ATTEND Internal Medicine
PROC: 0DB68ZX Excision of Stomach, Via Natural or Artificial Opening Endoscopic, Diagnostic (ICD-10-PCS; 2016-11-17)
PROC: 0D768ZZ Dilation of Stomach, Via Natural or Artificial Opening Endoscopic (ICD-10-PCS; 2016-11-23)
PROC: 0DB68ZX Excision of Stomach, Via Natural or Artificial Opening Endoscopic, Diagnostic (ICD-10-PCS; principal; 2016-11-23 15:00)
DX: K92.2 Gastrointestinal hemorrhage, unspecified (principal); K25.9 Gastric ulcer, unspecified as acute or chronic, without hemorrhage or perforation; K21.9 Gastro-esophageal reflux disease without esophagitis; F17.210 Nicotine dependence, cigarettes, uncomplicated; K31.1 Adult hypertrophic pyloric stenosis; R55 Syncope and collapse
CPT/HCPCS: 36415; 71010-TC; 80053; 80061; 81003; 82272; 82550; 82553; 83721; 84443; 84484; 85025; 85044; 85610; 86850; 86900; 86901; 87389; 88305-TC; 93005; 93010; 93306-TC; 99283-25

== ENCOUNTER 2016-12-13 08:51 | Day surgery (SDC) | payer OTHER ==
[2016-12-13 09:32] VITALS: BMI 30.2
[2016-12-13] MEDS ORDERED: PROPOFOL 20 ML ONE (10:17)
[2016-12-13 11:09] VITALS: TEMP 97.7
[2016-12-13 11:48] VITALS: BP 152/81; PULSE 63
[2016-12-13 13:06] LABS: MCH 26.6 pg (25.7-33.7); MCHC 31.5 g/dl (32.0-36.0); MEAN CELL VOLUME 84.5 fl (80-96); MEAN PLT VOLUME 8.8 fl (7.5-11.1); PLATELET COUNT 330 K/MM3 (134-434); RDW 16.2 % (11.6-15.6); WHITE BLOOD COUNT 5.5 K/mm3 (4.0-10.0)
== END 2016-12-13 12:41 | disposition home or self-care (01) ==
LOC: JASU-ENDO 08:51
PROVIDERS: ATTEND Internal Medicine Gastroenterology
PROC: 0D778ZZ Dilation of Stomach, Pylorus, Via Natural or Artificial Opening Endoscopic (ICD-10-PCS; principal; 2016-12-13 10:00)
DX: K31.1 Adult hypertrophic pyloric stenosis (principal); K44.9 Diaphragmatic hernia without obstruction or gangrene
CPT/HCPCS: 36415; 85027

== ENCOUNTER 2016-12-20 09:56 | Day surgery (SDC) | payer OTHER ==
[2016-12-20 10:41] VITALS: BMI 30.2
[2016-12-20] MEDS ORDERED: PROPOFOL 20 ML ONE (11:46)
[2016-12-20] MEDS ORDERED: LIDOCAINE HCL/PF 2% SDV 5ML VIAL ONE (11:47)
[2016-12-20 12:49] VITALS: TEMP 97.8
[2016-12-20 13:47] VITALS: BP 157/71; PULSE 62
== END 2016-12-20 14:06 | disposition home or self-care (01) ==
LOC: JASU-ENDO 09:56
PROVIDERS: ATTEND Internal Medicine Gastroenterology
PROC: 0D778ZZ Dilation of Stomach, Pylorus, Via Natural or Artificial Opening Endoscopic (ICD-10-PCS; principal; 2016-12-20 11:00)
DX: K31.1 Adult hypertrophic pyloric stenosis (principal); K44.9 Diaphragmatic hernia without obstruction or gangrene

== ENCOUNTER 2017-05-30 11:13 | Day surgery (SDC) | payer OTHER ==
[2017-05-30] MEDS ORDERED: PROPOFOL 20 ML ONE ×2 (11:59)
[2017-05-30 12:10] VITALS: BMI 32.4
[2017-05-30 12:52] VITALS: TEMP 97.8
[2017-05-30 16:37] VITALS: BP 129/68; PULSE 66
--- NOTE | 2017-05-31 13:14 | PATH ---
Surgical Pathology Report Patient Name: OLE SERRA [facility]. Rec. #: [id number] /Age/Gender: 1955 (Age: 61) / F Account: [id number] Location: [facility] Taken: 05/30/2017 Received: 05/30/2017 Reported: 05/31/2017 Physicians: Garrett Lagos M.D. Specimen(s) Received ANASTOMOSIS BX Clinical History History of gastric ulcer, gastric bypass Gastric bypass, normal anastomosis, gastric retention Final Diagnosis ANASTOMOSIS SITE, BIOPSY: ANASTOMOTIC GASTROINTESTINAL MUCOSA WITH CHRONIC INFLAMMATION AND REACTIVE CHANGES. NO DYSPLASIA OR CARCINOMA IDENTIFIED. IMMUNOSTAIN FOR H. PYLORI IS NEGATIVE FOR ORGANISMS. Electronically Signed Adiel Mccain M.D. Gross Description Received in formalin, labeled "biopsy anastomosis" are 2 tompkins, irregular portions of soft tissue measuring 0.1 and 0.3 cm in greatest dimension, admixed with mucus. The specimens are submitted in toto in one cassette. /05/30/201705/30/2017
== END 2017-05-30 14:15 | disposition home or self-care (01) ==
LOC: JASU-ENDO 11:13
PROVIDERS: ATTEND Internal Medicine Gastroenterology
PROC: 0DB68ZX Excision of Stomach, Via Natural or Artificial Opening Endoscopic, Diagnostic (ICD-10-PCS; principal; 2017-05-30 12:30)
DX: K29.70 Gastritis, unspecified, without bleeding (principal); Z98.84 Bariatric surgery status; Z87.11 Personal history of peptic ulcer disease
CPT/HCPCS: 88305-TC; 88342-TC

== ENCOUNTER 2018-08-17 07:46 | Day surgery (SDC) | payer OTHER ==
[2018-08-16 14:39] VITALS: BMI 33.0
[2018-08-17] MEDS ORDERED: TRIAMCINOLONE ACET 40MG/1ML VIAL ONE (10:39)
[2018-08-17 11:06] VITALS: TEMP 97.5
[2018-08-17 12:10] VITALS: BP 151/62; PULSE 64
--- NOTE | 2018-08-18 18:15 | PATH ---
Surgical Pathology Report Patient Name: OLE SERRA [facility]. Rec. #: [id number] /Age/Gender: 1955 (Age: 63) / F Account: [id number] Location: [facility] Taken: 08/17/2018 Received: 08/17/2018 Reported: 08/18/2018 Physicians: Jens Lubin M.D. Specimen(s) Received EROSION AT ANASTOMOSIS RING Clinical History Stricture, ulcer Postoperative diagnosis: Erosion at anastomosis Final Diagnosis EROSION AT ANASTOMOSIS, BIOPSY: SMALL INTESTINAL MUCOSA WITH MILD ACUTE INFLAMMATION IN THE LAMINA PROPRIA. Electronically Signed Julia Matta M.D. Gross Description Received in formalin, labeled "biopsy erosions at anastomosis" is a tompkins, irregular portion of soft tissue measuring 0.3 cm. in greatest dimension. The specimen is submitted in toto in one cassette. /08/17/2018 saudi08/17/2018
== END 2018-08-17 13:00 | disposition home or self-care (01) ==
LOC: JASU-ENDO 07:46
PROVIDERS: ATTEND Internal Medicine Gastroenterology
PROC: 0DBA8ZX Excision of Jejunum, Via Natural or Artificial Opening Endoscopic, Diagnostic (ICD-10-PCS; principal; 2018-08-17 09:00)
DX: K31.1 Adult hypertrophic pyloric stenosis (principal); K25.9 Gastric ulcer, unspecified as acute or chronic, without hemorrhage or perforation; K63.89 Other specified diseases of intestine
CPT/HCPCS: 88305-TC

== ENCOUNTER 2021-02-23 11:28 | Inpatient (IN) | payer OTHER ==
[2021-02-23] MEDS ORDERED: FUROSEMIDE 40 MG/4 ML INJECTABLE VIAL IVPUSH ONE (13:18)
[2021-02-23 14:01] LABS: BASO % 1.1 % (0-2.0); EOS % 2.3 % (0-4.5); HEMATOCRIT 15.2 % (32.4-45.2); LYMPH % 22.5 % (8-40); MCHC 25.6 g/dl (32.0-36.0); MEAN CELL VOLUME 52.7 fl (80-96); MEAN PLT VOLUME 8.6 fl (7.5-11.1); NEUT % 66.1 % (42.8-82.8); PLATELET COUNT 288 10^3/uL (134-434); RBC 2.88 M/mm3 (3.60-5.2); RDW 24.4 % (11.6-15.6); WHITE BLOOD COUNT 6.3 K/mm3 (4.0-10.0)
[2021-02-23] MEDS ORDERED: FUROSEMIDE 40 MG/4 ML INJECTABLE VIAL ONE (14:03)
[2021-02-23 14:08] LABS: INR 1.15 (0.83-1.09); PROTHROMBIN TIME (PATIENT) 13.8 SEC (9.7-13.0)
[2021-02-23 14:10] LABS: ACTIVATED PTT 26.1 SECONDS (25.2-36.5)
[2021-02-23 14:12] LABS: HEMOGLOBIN 3.9 GM/dL (10.7-15.3); MCH 13.5 pg (25.7-33.7)
[2021-02-23 14:20] LABS: CHLORIDE 114 mmol/L (98-107); SODIUM 144 mmol/L (136-145)
[2021-02-23 14:22] LABS: CALCIUM 8.3 mg/dL (8.5-10.1)
[2021-02-23 14:23] LABS: ALBUMIN 3.3 g/dl (3.4-5.0); ANION GAP 7 MMOL/L (8-16); CO2 23 mmol/L (21-32); GLUCOSE,RANDOM 85 mg/dL (74-106)
[2021-02-23 14:24] LABS: MAGNESIUM 2.1 mg/dL (1.8-2.4)
[2021-02-23 14:26] LABS: CREATININE 0.7 mg/dL (0.55-1.3); SGOT/AST 16 U/L (15-37); SGPT/ALT 15 U/L (13-61)
[2021-02-23 14:27] LABS: BILIRUBIN,TOTAL 0.3 mg/dL (0.2-1)
[2021-02-23 14:28] LABS: TOT PROT 6.1 g/dl (6.4-8.2)
[2021-02-23 14:29] LABS: ALK PHOS 93 U/L (45-117)
[2021-02-23 14:32] LABS: N-TERMINAL BNP 164.4 pg/ml (5-125)
[2021-02-23 14:33] LABS: BLOOD UREA NITROGEN 13.8 mg/dL (7-18)
[2021-02-23 15:00] LABS: ANISOCYTOSIS 1+; MACROCYTOSIS 1+; OVALOCYTE 1+; PLATELET ESTIMATE NORMAL; TARGET CELLS 2+; TEAR DROP CELLS 2+
[2021-02-24 02:05] VITALS: BMI 29.5
[2021-02-24 08:13] LABS: BASO % 0.8 % (0-2.0); EOS % 1.5 % (0-4.5); HEMOGLOBIN 7.1 GM/dL (10.7-15.3); LYMPH % 17.2 % (8-40); MCHC 29.5 g/dl (32.0-36.0); MEAN CELL VOLUME 62.5 fl (80-96); MEAN PLT VOLUME 8.6 fl (7.5-11.1); MONO % 9.3 % (3.8-10.2); NEUT % 71.2 % (42.8-82.8); PLATELET COUNT 268 10^3/uL (134-434); RBC 3.84 M/mm3 (3.60-5.2); RDW 34.2 % (11.6-15.6); WHITE BLOOD COUNT 6.9 K/mm3 (4.0-10.0)
[2021-02-24 08:30] LABS: MCH 18.5 pg (25.7-33.7)
[2021-02-24 08:32] LABS: CALCIUM 8.6 mg/dL (8.5-10.1)
[2021-02-24 08:33] LABS: ALBUMIN 3.4 g/dl (3.4-5.0); BLOOD UREA NITROGEN 12.2 mg/dL (7-18)
[2021-02-24 08:36] LABS: CREATININE 0.8 mg/dL (0.55-1.3)
[2021-02-24 08:37] LABS: BILIRUBIN,TOTAL 0.8 mg/dL (0.2-1); TOT PROT 6.5 g/dl (6.4-8.2)
[2021-02-24] MEDS ORDERED: amLODIPine BESYLATE 5 MG TABLET (FP) PO SCH (10:00)
[2021-02-24] MEDS: metoPROLOL SUCCINATE 25 MG TAB.SR.24H (FP) PO SCH (10:19)
[2021-02-24] MEDS: PANTOPRAZOLE 40 MG TABLET PO SCH (10:19)
[2021-02-24] MEDS: LISINOPRIL 5 MG TABLET PO SCH (13:09)
[2021-02-24] MEDS: ACETAMINOPHEN 325 MG TABLET (FP) PO PRN (22:00)
[2021-02-25 09:12] LABS: EOS % 1.4 % (0-4.5); HEMATOCRIT 23.7 % (32.4-45.2); LYMPH % 18.1 % (8-40); MEAN CELL VOLUME 62.8 fl (80-96); MEAN PLT VOLUME 9.3 fl (7.5-11.1); MONO % 7.7 % (3.8-10.2); NEUT % 71.8 % (42.8-82.8); PLATELET COUNT 262 10^3/uL (134-434); RBC 3.78 M/mm3 (3.60-5.2); RDW 34.4 % (11.6-15.6); WHITE BLOOD COUNT 6.7 K/mm3 (4.0-10.0)
[2021-02-25 09:22] LABS: CALCIUM 8.1 mg/dL (8.5-10.1)
[2021-02-25 09:23] LABS: ALBUMIN 3.4 g/dl (3.4-5.0); BLOOD UREA NITROGEN 12.7 mg/dL (7-18)
[2021-02-25] MEDS ORDERED: PT OWN MED DRAWER 7, Y5N ONE (09:23)
[2021-02-25 09:26] LABS: CREATININE 0.7 mg/dL (0.55-1.3)
[2021-02-25 09:28] LABS: BILIRUBIN,TOTAL 0.7 mg/dL (0.2-1); TOT PROT 6.4 g/dl (6.4-8.2)
[2021-02-25 09:32] LABS: MCH 18.2 pg (25.7-33.7)
[2021-02-25 09:33] LABS: HEMOGLOBIN 6.9 GM/dL (10.7-15.3)
[2021-02-25] MEDS: PANTOPRAZOLE 40 MG TABLET PO SCH (09:33)
[2021-02-25] MEDS: metoPROLOL SUCCINATE 25 MG TAB.SR.24H (FP) PO SCH (09:33)
[2021-02-25] MEDS: LISINOPRIL 5 MG TABLET PO SCH (09:34)
[2021-02-25] MEDS: FUROSEMIDE 40 MG/4 ML INJECTABLE VIAL IVPUSH SCH (09:35)
[2021-02-25 11:01] LABS: PLATELET ESTIMATE NORMAL
[2021-02-25] MEDS: ACETAMINOPHEN 325 MG TABLET (FP) PO PRN ×2 (11:38→21:00)
[2021-02-26 07:55] LABS: BASO % 0.6 % (0-2.0); EOS % 1.4 % (0-4.5); HEMOGLOBIN 8.4 GM/dL (10.7-15.3); LYMPH % 14.8 % (8-40); MCHC 30.1 g/dl (32.0-36.0); MEAN CELL VOLUME 65.5 fl (80-96); MEAN PLT VOLUME 9.6 fl (7.5-11.1); MONO % 7.6 % (3.8-10.2); NEUT % 75.6 % (42.8-82.8); PLATELET COUNT 264 10^3/uL (134-434); RBC 4.27 M/mm3 (3.60-5.2); RDW 34.8 % (11.6-15.6); WHITE BLOOD COUNT 8.3 K/mm3 (4.0-10.0)
[2021-02-26 07:57] LABS: MCH 19.7 pg (25.7-33.7)
[2021-02-26 09:32] LABS: IRON SERUM 17 ug/dL (50-175); TOTAL IRON BINDING CAPACITY 460 ug/dL (250-450)
[2021-02-26] MEDS ORDERED: PT OWN MED DRAWER 7, Y5N ONE (09:57)
[2021-02-26] MEDS: PANTOPRAZOLE 40 MG TABLET PO SCH (09:59)
[2021-02-26] MEDS: LISINOPRIL 5 MG TABLET PO SCH (09:59)
[2021-02-26] MEDS: FUROSEMIDE 40 MG/4 ML INJECTABLE VIAL IVPUSH SCH (09:59)
[2021-02-26] MEDS: metoPROLOL SUCCINATE 25 MG TAB.SR.24H (FP) PO SCH (09:59)
[2021-02-26] MEDS: ACETAMINOPHEN 325 MG TABLET (FP) PO PRN (21:21)
[2021-02-27 07:55] LABS: ALBUMIN 3.6 g/dl (3.4-5.0); BLOOD UREA NITROGEN 14.6 mg/dL (7-18); CALCIUM 8.5 mg/dL (8.5-10.1)
[2021-02-27 07:57] LABS: BILIRUBIN,TOTAL 0.7 mg/dL (0.2-1); TOT PROT 6.8 g/dl (6.4-8.2)
[2021-02-27 07:58] LABS: CREATININE 0.7 mg/dL (0.55-1.3)
[2021-02-27 08:00] LABS: BASO % 0.7 % (0-2.0); EOS % 1.6 % (0-4.5); HEMATOCRIT 29.9 % (32.4-45.2); HEMOGLOBIN 8.9 GM/dL (10.7-15.3); MCHC 29.8 g/dl (32.0-36.0); MEAN CELL VOLUME 65.8 fl (80-96); MEAN PLT VOLUME 9.1 fl (7.5-11.1); MONO % 7.3 % (3.8-10.2); NEUT % 74.4 % (42.8-82.8); PLATELET COUNT 281 10^3/uL (134-434); RBC 4.54 M/mm3 (3.60-5.2); RDW 35.7 % (11.6-15.6); WHITE BLOOD COUNT 7.9 K/mm3 (4.0-10.0)
[2021-02-27 08:03] LABS: MCH 19.6 pg (25.7-33.7)
[2021-02-27] MEDS: FUROSEMIDE 40 MG/4 ML INJECTABLE VIAL IVPUSH SCH (10:33)
[2021-02-27] MEDS: metoPROLOL SUCCINATE 25 MG TAB.SR.24H (FP) PO SCH (10:35)
[2021-02-27] MEDS: PANTOPRAZOLE 40 MG TABLET PO SCH (10:35)
[2021-02-27] MEDS: LISINOPRIL 5 MG TABLET PO SCH (10:35)
[2021-02-27 10:40] LABS: ANISOCYTOSIS 2+; MACROCYTOSIS 0; OVALOCYTE 2+; PLATELET ESTIMATE NORMAL; TARGET CELLS 2+; TEAR DROP CELLS 1+
[2021-02-27] MEDS ORDERED: FERRIC CARBOXYMALTOSE 750 MG in SODIUM CHLORIDE 250 ML IVPB ONE (11:00)
[2021-02-28] MEDS: ACETAMINOPHEN 325 MG TABLET (FP) PO PRN ×2 (05:24→21:03)
[2021-02-28] MEDS: LISINOPRIL 5 MG TABLET PO SCH (09:09)
[2021-02-28] MEDS: FUROSEMIDE 40 MG/4 ML INJECTABLE VIAL IVPUSH SCH (09:09)
[2021-02-28] MEDS: metoPROLOL SUCCINATE 25 MG TAB.SR.24H (FP) PO SCH (09:09)
[2021-02-28] MEDS: PANTOPRAZOLE 40 MG TABLET PO SCH (09:10)
[2021-03-01] MEDS: FUROSEMIDE 40 MG/4 ML INJECTABLE VIAL IVPUSH SCH (09:12)
[2021-03-01] MEDS: PANTOPRAZOLE 40 MG TABLET PO SCH (09:13)
[2021-03-01] MEDS: ACETAMINOPHEN 325 MG TABLET (FP) PO PRN (09:13)
[2021-03-01] MEDS: metoPROLOL SUCCINATE 25 MG TAB.SR.24H (FP) PO SCH (09:13)
[2021-03-01] MEDS: LISINOPRIL 5 MG TABLET PO SCH (09:13)
[2021-03-01 13:54] VITALS: BP 111/61; PULSE 62; TEMP 97.9
== END 2021-03-01 15:33 | disposition home or self-care (01) | DRG 812 ==
LOC: JER 11:28 → JERBED 15:10 → J6S 02-24 00:44
PROVIDERS: ADMIT Internal Medicine; ATTEND Internal Medicine
PROC: 30233N1 Transfusion of Nonautologous Red Blood Cells into Peripheral Vein, Percutaneous Approach (ICD-10-PCS; principal; 2021-02-23)
DX: D50.9 Iron deficiency anemia, unspecified (principal); I50.22 Chronic systolic (congestive) heart failure; R60.0 Localized edema; I10 Essential (primary) hypertension; K21.9 Gastro-esophageal reflux disease without esophagitis; F17.210 Nicotine dependence, cigarettes, uncomplicated
CPT/HCPCS: 36415; 36430; 71045-TC-FY; 74177-TC; 80053; 80061; 82272; 82607; 82728; 82747; 83021; 83036; 83540; 83550; 83721; 83735; 83880; 84439; 84443; 84484; 85014; 85025; 85610; 85660; 85730; 86850; 86900; 86901; 86922; 93005; 93010; 93306-TC; 99285-25; C9803; J1439; P9058; Q9967; U0003; U0005

== ENCOUNTER 2021-10-15 16:48 | Inpatient (IN) | payer OTHER ==
[2021-10-15] MEDS ORDERED: ASPIRIN 81 MG CHEWABLE TABLETS PO ONE (18:54)
[2021-10-15] MEDS ORDERED: ASPIRIN 81 MG CHEWABLE TABLETS ONE (19:37)
[2021-10-15 20:30] LABS: BASO % 1.5 % (0-2.0); EOS % 2.3 % (0-4.5); HEMATOCRIT 42.8 % (32.4-45.2); HEMOGLOBIN 13.3 GM/dL (10.7-15.3); LYMPH % 34.1 % (8-40); MCH 26.8 pg (25.7-33.7); MCHC 31.1 g/dl (32.0-36.0); MEAN CELL VOLUME 86.2 fl (80-96); MEAN PLT VOLUME 9.7 fl (7.5-11.1); MONO % 8.4 % (3.8-10.2); NEUT % 53.7 % (42.8-82.8); PLATELET COUNT 253 10^3/uL (134-434); RBC 4.96 M/mm3 (3.60-5.2); RDW 14.8 % (11.6-15.6); WHITE BLOOD COUNT 6.6 K/mm3 (4.0-10.0)
[2021-10-15 20:38] LABS: INR 1.08 (0.83-1.09); PROTHROMBIN TIME (PATIENT) 12.4 SEC (9.7-13.0)
[2021-10-15 20:41] LABS: ACTIVATED PTT 33.1 SECONDS (25.2-36.5)
[2021-10-15 20:53] LABS: ALBUMIN 3.8 g/dl (3.4-5.0); BLOOD UREA NITROGEN 7.2 mg/dL (7-18); MAGNESIUM 2.2 mg/dL (1.8-2.4)
[2021-10-15 20:56] LABS: CREATININE 0.8 mg/dL (0.55-1.3)
[2021-10-15 20:57] LABS: BILIRUBIN,TOTAL 0.4 mg/dL (0.2-1); TOT PROT 7.2 g/dl (6.4-8.2)
[2021-10-15 21:01] LABS: N-TERMINAL BNP 634.4 pg/ml (5-125)
[2021-10-15] MEDS ORDERED: ASPIRIN COATED 81 MG TABLET.EC ONE (21:15)
[2021-10-15 21:44] LABS: URINE APPEARANCE CLEAR; URINE BILIRUBIN NEGATIVE (NEGATIVE); URINE COLOR YELLOW; URINE GLUCOSE (UA) NEGATIVE (NEGATIVE); URINE KETONE NEGATIVE (NEGATIVE); URINE LEUK ESTERASE NEGATIVE (NEGATIVE); URINE NITRITE NEGATIVE (NEGATIVE); URINE PROTEIN NEGATIVE (NEGATIVE); URINE UROBILINOGEN 0.2 mg/dL (0.2-1.0)
[2021-10-16] MEDS ORDERED: FUROSEMIDE 40 MG TABLET (FP) ONE (08:39)
[2021-10-16] MEDS ORDERED: ENOXAPARIN NA (PORCINE) 40 MG/0.4 ML DISP.SYRIN SQ ONE (08:40)
[2021-10-16] MEDS ORDERED: PANTOPRAZOLE 40 MG TABLET ONE (08:40)
[2021-10-16] MEDS ORDERED: metoPROLOL SUCCINATE 25 MG TAB.SR.24H (FP) ONE (08:40)
[2021-10-16] MEDS ORDERED: LISINOPRIL 5 MG TABLET ONE (08:41)
[2021-10-16] MEDS: FUROSEMIDE 20 MG TABLET (FP) PO SCH (09:32)
[2021-10-16] MEDS: LISINOPRIL 5 MG TABLET PO SCH (09:32)
[2021-10-16] MEDS: ENOXAPARIN NA (PORCINE) 40 MG/0.4 ML DISP.SYRIN SQ SCH (09:32)
[2021-10-16] MEDS: PANTOPRAZOLE 40 MG TABLET PO SCH (09:33)
[2021-10-16] MEDS: metoPROLOL SUCCINATE 25 MG TAB.SR.24H (FP) PO SCH (09:33)
[2021-10-16] MEDS: BUDESONIDE/FORMETEROL FUMARATE 160/4.5 mcg INHALER IH SCH ×2 (10:38→23:01)
[2021-10-16 12:08] LABS: SARS-CoV-2 NAA Not Detected (Not Detected)
[2021-10-17 02:45] VITALS: BMI 30.2
[2021-10-17 08:00] LABS: CHOLESTEROL 147 mg/dL (50-200)
[2021-10-17 08:02] LABS: LDL CHOLESTEROL (ONLY SJRH) 94 mg/dL (5-100)
[2021-10-17 08:03] LABS: HDL CHOLESTEROL 31 mg/dL (40-60); TRIGLYCERIDES 145 mg/dL (0-150)
[2021-10-17] MEDS: metoPROLOL SUCCINATE 25 MG TAB.SR.24H (FP) PO SCH (08:59)
[2021-10-17] MEDS: ENOXAPARIN NA (PORCINE) 40 MG/0.4 ML DISP.SYRIN SQ SCH (08:59)
[2021-10-17] MEDS: PANTOPRAZOLE 40 MG TABLET PO SCH (08:59)
[2021-10-17] MEDS: LISINOPRIL 5 MG TABLET PO SCH (08:59)
[2021-10-17] MEDS: FUROSEMIDE 20 MG TABLET (FP) PO SCH (08:59)
[2021-10-17] MEDS: BUDESONIDE/FORMETEROL FUMARATE 160/4.5 mcg INHALER IH SCH ×2 (12:00→21:20)
[2021-10-17] MEDS: ATORVASTATIN CA 10 MG TABLET (FP) PO SCH (21:23)
[2021-10-18 07:17] LABS: BASO % 0.6 % (0-2.0); EOS % 2.2 % (0-4.5); HEMATOCRIT 39.9 % (32.4-45.2); HEMOGLOBIN 12.9 GM/dL (10.7-15.3); LYMPH % 17.6 % (8-40); MCH 27.9 pg (25.7-33.7); MCHC 32.5 g/dl (32.0-36.0); MEAN CELL VOLUME 85.9 fl (80-96); MEAN PLT VOLUME 9.2 fl (7.5-11.1); MONO % 9.2 % (3.8-10.2); NEUT % 70.4 % (42.8-82.8); PLATELET COUNT 211 10^3/uL (134-434); RBC 4.64 M/mm3 (3.60-5.2); RDW 14.8 % (11.6-15.6); WHITE BLOOD COUNT 4.7 K/mm3 (4.0-10.0)
[2021-10-18 07:33] LABS: ALBUMIN 3.5 g/dl (3.4-5.0); BLOOD UREA NITROGEN 12.1 mg/dL (7-18); CALCIUM 8.7 mg/dL (8.5-10.1)
[2021-10-18 07:35] LABS: CREATININE 0.9 mg/dL (0.55-1.3)
[2021-10-18 07:37] LABS: BILIRUBIN,TOTAL 0.6 mg/dL (0.2-1); TOT PROT 6.2 g/dl (6.4-8.2)
[2021-10-18] MEDS: FUROSEMIDE 20 MG TABLET (FP) PO SCH (09:16)
[2021-10-18] MEDS: PANTOPRAZOLE 40 MG TABLET PO SCH (09:16)
[2021-10-18] MEDS: LISINOPRIL 5 MG TABLET PO SCH (09:16)
[2021-10-18] MEDS: ENOXAPARIN NA (PORCINE) 40 MG/0.4 ML DISP.SYRIN SQ SCH (09:16)
[2021-10-18] MEDS: metoPROLOL SUCCINATE 25 MG TAB.SR.24H (FP) PO SCH (09:17)
[2021-10-18] MEDS: BUDESONIDE/FORMETEROL FUMARATE 160/4.5 mcg INHALER IH SCH ×2 (09:17→21:08)
[2021-10-18] MEDS: ATORVASTATIN CA 10 MG TABLET (FP) PO SCH (21:08)
[2021-10-19] MEDS: FUROSEMIDE 20 MG TABLET (FP) PO SCH (09:09)
[2021-10-19] MEDS: metoPROLOL SUCCINATE 25 MG TAB.SR.24H (FP) PO SCH (09:09)
[2021-10-19] MEDS: LISINOPRIL 5 MG TABLET PO SCH (09:09)
[2021-10-19] MEDS: PANTOPRAZOLE 40 MG TABLET PO SCH (09:09)
[2021-10-19] MEDS: BUDESONIDE/FORMETEROL FUMARATE 160/4.5 mcg INHALER IH SCH ×2 (09:10→21:21)
[2021-10-19] MEDS: ENOXAPARIN NA (PORCINE) 40 MG/0.4 ML DISP.SYRIN SQ SCH (09:10)
[2021-10-19] MEDS: ATORVASTATIN CA 10 MG TABLET (FP) PO SCH (21:21)
[2021-10-20] MEDS ORDERED: REGADENOSON 0.4 MG/5 ML PRE-FILLED SYRINGE IVPUSH ONE ×2 (09:50→10:00)
[2021-10-20] MEDS: ENOXAPARIN NA (PORCINE) 40 MG/0.4 ML DISP.SYRIN SQ SCH (11:09)
[2021-10-20] MEDS: FUROSEMIDE 20 MG TABLET (FP) PO SCH (11:09)
[2021-10-20] MEDS: LISINOPRIL 5 MG TABLET PO SCH (11:09)
[2021-10-20] MEDS: metoPROLOL SUCCINATE 25 MG TAB.SR.24H (FP) PO SCH (11:10)
[2021-10-20] MEDS: PANTOPRAZOLE 40 MG TABLET PO SCH (11:10)
[2021-10-20] MEDS: BUDESONIDE/FORMETEROL FUMARATE 160/4.5 mcg INHALER IH SCH ×2 (11:10→21:32)
[2021-10-20] MEDS ORDERED: ACETAMINOPHEN 325 MG TABLET (FP) ONE (15:13)
[2021-10-20] MEDS: ATORVASTATIN CA 10 MG TABLET (FP) PO SCH (21:32)
[2021-10-21] MEDS: ENOXAPARIN NA (PORCINE) 40 MG/0.4 ML DISP.SYRIN SQ SCH (09:38)
[2021-10-21] MEDS: LISINOPRIL 5 MG TABLET PO SCH (09:39)
[2021-10-21] MEDS: PANTOPRAZOLE 40 MG TABLET PO SCH (09:39)
[2021-10-21] MEDS: metoPROLOL SUCCINATE 25 MG TAB.SR.24H (FP) PO SCH (09:40)
[2021-10-21] MEDS: BUDESONIDE/FORMETEROL FUMARATE 160/4.5 mcg INHALER IH SCH (09:42)
[2021-10-21 13:54] VITALS: BP 122/77; PULSE 73; TEMP 98.4
== END 2021-10-21 14:32 | disposition short-term general hospital (02) | DRG 312 ==
LOC: JER 16:48 → JERBED 22:28 → OBSVTOIN 10-16 07:43 → J4W 10-16 20:58
PROVIDERS: ADMIT Internal Medicine; ATTEND Internal Medicine
DX: R55 Syncope and collapse (principal); I50.22 Chronic systolic (congestive) heart failure; J44.9 Chronic obstructive pulmonary disease, unspecified; R94.39 Abnormal result of other cardiovascular function study; I10 Essential (primary) hypertension; K21.9 Gastro-esophageal reflux disease without esophagitis; I11.0 Hypertensive heart disease with heart failure; R94.31 Abnormal electrocardiogram [ECG] [EKG]; D64.9 Anemia, unspecified; F17.210 Nicotine dependence, cigarettes, uncomplicated; E66.9 Obesity, unspecified; Z68.30 Body mass index [BMI] 30.0-30.9, adult
CPT/HCPCS: 36415; 70450-TC; 71046-TC-FY; 78452-TC; 80053; 80061; 81003; 83735; 83880; 84484; 85025; 85610; 85730; 86850; 86900; 86901; 93005; 93010; 93017; 93306-TC; 93880-TC; 99285-25; A9502; C9803; G0378; J2785; U0003; U0005

== ENCOUNTER 2022-07-08 14:54 | Emergency (ER) | payer OTHER ==
[2022-07-08 15:06] VITALS: RESP 18; TEMP 98.1; BMI 28.3
[2022-07-08] MEDS ORDERED: ACETAMINOPHEN 1000 MG/100 ML BAG IVPB ONE (16:19)
[2022-07-08] MEDS ORDERED: ACETAMINOPHEN INJECTION 100 ML IVPB ONE (16:29)
[2022-07-08 16:47] LABS: BASO % 0.4 % (0-2.0); EOS % 1.4 % (0-4.5); HEMATOCRIT 38.5 % (32.4-45.2); HEMOGLOBIN 12.3 GM/dL (10.7-15.3); LYMPH % 32.7 % (8-40); MCH 25.1 pg (25.7-33.7); MCHC 31.9 g/dl (32.0-36.0); MEAN CELL VOLUME 78.6 fl (80-96); MEAN PLT VOLUME 9.6 fl (7.5-11.1); MONO % 8.4 % (3.8-10.2); NEUT % 57.1 % (42.8-82.8); PLATELET COUNT 182 10^3/uL (134-434); RBC 4.89 M/mm3 (3.60-5.2); RDW 17.5 % (11.6-15.6); WHITE BLOOD COUNT 4.5 K/mm3 (4.0-10.0)
[2022-07-08 17:26] LABS: ALBUMIN 3.7 g/dl (3.4-5.0); CALCIUM 8.9 mg/dL (8.5-10.1)
[2022-07-08 17:28] LABS: BLOOD UREA NITROGEN 7.6 mg/dL (7-18)
[2022-07-08 17:30] LABS: CREATININE 0.7 mg/dL (0.55-1.3)
[2022-07-08 17:31] LABS: BILIRUBIN,TOTAL 0.4 mg/dL (0.2-1); TOT PROT 6.8 g/dl (6.4-8.2)
[2022-07-08 17:34] LABS: N-TERMINAL BNP 394.1 pg/ml (5-125)
[2022-07-08] MEDS ORDERED: AMOX TR/POT CLAV 875MG/125MG TABLETS (FP) PO ONE (19:06)
[2022-07-08] MEDS ORDERED: AMOX TR/POT CLAV 875MG/125MG TABLETS (FP) ONE (19:12)
[2022-07-08 19:49] VITALS: BP 140/72; PULSE 70
== END 2022-07-08 19:48 | disposition home or self-care (01) ==
LOC: JER 14:54
PROC: 3E033GC Introduction of Other Therapeutic Substance into Peripheral Vein, Percutaneous Approach (ICD-10-PCS; principal; 2022-07-08)
DX: K57.92 Diverticulitis of intestine, part unspecified, without perforation or abscess without bleeding (principal)
CPT/HCPCS: 0241U-QW; 36415; 71046-TC-FY; 74177-TC; 80053; 83690; 83880; 84484; 85025; 86850; 86900; 86901; 93970-TC; 99285-25; Q9967

== ENCOUNTER 2024-04-19 16:00 | Emergency (ER) | payer OTHER ==
[2024-04-19 16:17] VITALS: BP 179/90; PULSE 81; RESP 18; TEMP 98; BMI 28.3
[2024-04-19] MEDS ORDERED: ACETAMINOPHEN INJECTION 100 ML IVPB ONE (17:26)
[2024-04-19 17:31] LABS: BASO % 1.2 % (0-2.0); EOS % 2.8 % (0-4.5); HEMATOCRIT 32.6 % (32.4-45.2); HEMOGLOBIN 10.3 GM/dL (10.7-15.3); LYMPH % 20.4 % (8-40); MCH 23.8 pg (25.7-33.7); MCHC 31.6 g/dl (32.0-36.0); MEAN CELL VOLUME 75.5 fl (80-96); MEAN PLT VOLUME 9.2 fl (7.5-11.1); MONO % 7.4 % (3.8-10.2); NEUT % 68.2 % (42.8-82.8); PLATELET COUNT 253 10^3/uL (134-434); RBC 4.31 M/mm3 (3.60-5.2); RDW 19.9 % (11.6-15.6); WHITE BLOOD COUNT 6.7 K/mm3 (4.0-10.0)
[2024-04-19 17:47] LABS: POTASSIUM 3.6 mmol/L (3.5-5.1)
[2024-04-19 17:49] LABS: CALCIUM 8.7 mg/dL (8.5-10.1)
[2024-04-19 17:50] LABS: ALBUMIN 3.3 g/dl (3.4-5.0)
[2024-04-19] MEDS: ACETAMINOPHEN 1000 MG/100 ML BAG IVPB ONE (17:50)
[2024-04-19 17:53] LABS: CREATININE 0.7 mg/dL (0.55-1.3)
[2024-04-19 17:55] LABS: BILIRUBIN,TOTAL 0.3 mg/dL (0.2-1); TOT PROT 6.2 g/dl (6.4-8.2)
[2024-04-19] MEDS ORDERED: KETOROLAC TROMETHAMINE 15 MG/ML VIAL IVPUSH ONE (20:14)
[2024-04-19] MEDS: KETOROLAC TROMETHAMINE 15 MG/ML VIAL IVPUSH ONE (21:23)
[2024-04-19] MEDS ORDERED: KETOROLAC TROMETHAMINE 15 MG/ML VIAL ONE (21:25)
== END 2024-04-19 21:59 | disposition home or self-care (01) ==
LOC: JER 16:00
PROC: 3E033NZ Introduction of Analgesics, Hypnotics, Sedatives into Peripheral Vein, Percutaneous Approach (ICD-10-PCS; principal; 2024-04-19)
PROC: 3E0333Z Introduction of Anti-inflammatory into Peripheral Vein, Percutaneous Approach (ICD-10-PCS; 2024-04-19)
DX: M79.671 Pain in right foot (principal); M79.672 Pain in left foot; D50.9 Iron deficiency anemia, unspecified; G25.81 Restless legs syndrome
CPT/HCPCS: 36415; 80053; 82728; 83540; 83550; 85025; 93970-TC; 99285-25; J0131